=== PATIENT | female | born 2005 | race Caucasian/White ===

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

== ENCOUNTER 2023-04-28 17:00 | Inpatient (IN) | payer OTHER, MEDICAID, SELFPAY ==
[2023-04-28 17:08] VITALS: BP 151/101; PULSE 140; RESP 18; TEMP 36.7; O2SAT 99; BMI 36.6
--- NOTE | 2023-04-28 17:08 | ED.GENADULT ---
HPI - General Adult General Chief complaint: Psychiatric Symptoms Stated complaint: Crisis Time Seen by Provider: 04/28/23 18:47 Source: patient and family Mode of arrival: ambulatory History of Present Illness HPI narrative: Worsening depression and anxiety, outpatient crisis sent her in because she is not caring for herself. Not suicidal Onset (ago): week(s) Severity: severe Related Data Home Medications Medication Instructions Recorded Confirmed atomoxetine 40 mg capsule 40 mg PO QAM 04/28/23 04/28/23 cariprazine 3 mg capsule (Vraylar) 3 mg PO DAILY 04/28/23 04/28/23 clonidine HCl 0.1 mg tablet 0.1 mg PO BID 04/28/23 04/28/23 fluoxetine 40 mg capsule 40 mg PO DAILY 04/28/23 04/28/23 norethindrone 1 mg-ethinyl 1 tab PO DAILY 04/28/23 04/28/23 estradiol 35 mcg tablet (Nortrel) Allergies Allergy/AdvReac Type Severity Reaction Status Date / Time No Known Allergies Allergy Verified 03/02/22 20:03 [No Known Allergies*] Review of Systems Review of Systems: Yes all other systems are reviewed and are negative Neurologic: Denies Sensory deficit (Neuro) [facility] Social History Social History Alcohol intake: never Advance Directives: No Advance Directives Information Provided: No Physical Exam ED Vital Signs: Vital Signs - 24 hr 04/28/23 17:08 04/29/23 00:17 Temperature 98.1 F 98.0 F Pulse Rate 140 H 117 H Respiratory Rate 18 18 Blood Pressure 151/101 H 125/88 Pulse Oximetry 99 99 Oxygen Delivery Method Room Air Room Air BMI result Body Mass Index 36.6 Const Other: simple affect General: healthy appearing Nutritional Appearance: average body habitus Orientation/consciousness: oriented to person and patient oriented x3 Limitations: no limitations HENMT Head: Yes normal to inspection Ears: external ears normal General nose exam: Normal external nose present Mouth: Normal oral and palatal mucosa present and oropharynx normal Throat: Yes posterior oropharynx normal Eyes General: appearance normal, both eyes and all related structures Neck Neck: Yes normal visual inspection Chest Chest palpation & inspection: normal inspection of the chest Resp Auscultation: clear to auscultation bilaterally Cardio Jugular venous distension: no JVD Rate: regular rate Rhythm: regular rhythm Heart sounds: S1 normal heart sound present and S2 normal heart sound present GI Inspection: Yes normal to inspection Palpation (GI): Soft to palpation, nontender and No hepatosplenomegaly present Auscultation: normal bowel sounds General: Yes no CVA tenderness Back/Spine/Pelvis Back: no CVA tenderness Skin General skin exam: no rashes or lesions noted Neuro General: oriented to person and patient oriented x3 Cranial nerves: Yes CN's II-XII intact bilaterally Motor exam (neuro): 5/5 motor strength present throughout Sensory Exam: No Sensory deficit (Neuro) Extrem General: Yes normal to inspection Psych Appearance: grossly normal Course Course Course Narrative: This is an RME: Additional HPI, ROS, PE not included below will be deferred to primary provider. 17 y o female PMH depression presenting for evaluation of depressive symptoms, states its been really bad lately . Denying SI/HI. States she is medication compliant on multiple medications including Atomoxetine, Clonidine, Vraylar, Fluoxetine. Denies chest pain, shortness of breath, dizziness, abdominal pain, numbness or tingling, nausea and vomiting. Plan: Labs Reevaluation(s) Reevaluation #1: physician observation: started at 8pm, reason is that we need to see if her depression improves or she will need to be admitted. Time: 19:59 Reevaluation #2: patient is medically cleared Time: 19:59 Reevaluation #3: Physician observation continued The patient has been in the emergency department for 14 hours, there are no reported incidents that occurred overnight. The patient has been seen by in and is a voluntary in-patient bed search. The patient will be kept in the emergency department Behavioral Health Unit until disposition can be determined or until her symptoms improve over time. Time: 07:07 Medications Administered Discontinued Medications Generic Name Dose Route Start Last Admin Trade Name [place] PRN Reason Stop Dose Admin Clonidine HCl 0.1 mg 04/29/23 01:26 04/29/23 01:28 Clonidine Hcl 0.1 Mg Tablet PO 04/29/23 01:27 0.1 mg ONCE ONE Administration Protocol Ibuprofen 600 mg 04/28/23 22:00 04/28/23 22:05 Ibuprofen 600 Mg Tablet PO 04/28/23 22:01 600 mg ONCE ONE Administration Ondansetron HCl 4 mg 04/28/23 22:00 04/28/23 22:06 Ondansetron Odt 4 Mg Tab.Rapdis TRANSLINGU 04/28/23 22:01 4 mg ONCE ONE Administration Medical Decision Making Differential Diagnosis Differential Diagnoses: The differential diagnosis associated with the presentation includes (depression, bipolar, suicidal ideation, PTSD) Admission/Observation Consideration of admission/observation: Escalation of care including admission/observation considered (upon arrival patient was considered for admission) Consult Healthcare Provider Management of the patient was discussed with: Behavioral Health Provider Lab Data 04/28/23 17:30 04/28/23 17:30 Labs: Lab Results 04/28/23 04/28/23 04/29/23 Range/Units 17:30 20: 01:04 WBC 9.3 (4.8-10.8) X10*3/uL RBC 5.17 (4.20-5.50) X10*6/uL Hgb 12.7 (12.0-16.0) g/dl Hct 39.8 (37.0-47.0) % MCV 77.0 L (80.0-98.0) fL MCH 24.6 L (27.0-33.0) pg MCHC 31.9 (31.0-35.0) g/dl RDW 17.8 H (11.0-16.0) % Plt Count 368 (160-400) X10*3/uL MPV 9.5 (9.4-12.3) fL Immature Gran % (Auto) 0.3 (0.0-0.4) % Neut % (Auto) 57.4 (45-73) % Lymph % (Auto) 31.3 (20-40) % [place] % (Auto) 8.6 (2-11) % Eos % (Auto) 2.0 (0-4) % Baso % (Auto) 0.4 (0-2) % Lymph # (Auto) 2.9 (1.2-4.9) X10*3/uL [place] # (Auto) 0.8 (0.1-1.2) X10*3/uL Eos # (Auto) 0.2 (0.0-0.4) X10*3/uL Baso # (Auto) 0.0 (0.0-0.2) X10*3/uL Abs Immat Gran (auto) 0.03 (0.00-0.03) X10*3/uL Absolute Neuts (auto) 5.4 (2.0-8.3) x10*3/uL Absolute Nucleated RBC 0.000 (0.0-0.012) X10*3/uL Nucleated RBC % (auto) 0.0 (0.0-0.2) /100WBC Sodium 135 (135-145) mmol/L Potassium 3.9 (3.3-5.1) mmol/L Chloride 107 (96-108) mmol/L Carbon Dioxide 17 L (22-29) mmol/L Anion Gap 15 (12-20) BUN 7 L (9-16) mg/dL Creatinine 0.71 (0.5-1.4) mg/dL Estim Creat Clear Calc 133.5 Estimated GFR > 60 Random Glucose 125 H (60-115) mg/dL Calcium 9.4 (8.4-10.2) mg/dL Total Bilirubin 0.3 (0.0-1.0) mg/dL AST 47 H (5-31) U/L ALT 74 H (0-31) U/L Alkaline Phosphatase 112 (39-117) U/L Total Protein 8.0 (6.5-8.0) g/dL Albumin 4.0 (3.5-5.0) g/dL Urine Color Dark Yellow Urine Appearance Cloudy Urine pH 6.0 (5.0-9.0) Ur Specific [place] >= 1.030 H (1.005-1.025) Urine Protein Trace (Neg-Trace) mg/dL Urine Glucose (UA) Negative (Negative) mg/dL Urine Ketones Trace (Negative) mg/dL Urine Blood Negative (Negative) Urine Nitrite Negative (Negative) Ur Leukocyte Esterase Moderate (2+) H (Negative) Urine RBC 11-20 H (0-2) /HPF Urine WBC >50 H (0-5) /HPF Ur Squamous Epith Cells >20 (0-2) /HPF Calcium Oxalate Crystal Present Urine Bacteria 4+ (None Seen) Hyaline Casts >20 (0-2) /LPF Salicylates < 5.0 L (15-30) mg/dL Urine Opiates Screen Not Detected (Not Detect) Urine Fentanyl Screen Not Detected (Not Detect) Acetaminophen < 17 (<30) mcg/mL Ur Barbiturates Screen Not Detected (Not Detect) Ur Phencyclidine Scrn Not Detected (Not Detect) Ur Amphetamines Screen Not Detected (Not Detect) U Benzodiazepines Scrn Not Detected (Not Detect) Urine Cocaine Screen Not Detected (Not Detect) U Marijuana (THC) Screen Not Detected (Not Detect) Ethyl Alcohol < 10 mg/dL Independent Interpretation I performed an independent interpretation of an: EKG (sinus tachycardia rate [address] or twave changes) Independent Historian Clinical information obtained from an independent historian. History obtained from or confirmed by: Parent and Other (grandmother) Chronic Conditions Patient?s care impacted by: Other (psychiatric) Discharge Plan Discharge Clinical Impression: Depression, Suicidal ideation Patient Disposition: Still a Patient Prescriptions: No Action fluoxetine 40 mg capsule 40 mg PO DAILY clonidine HCl 0.1 mg tablet 0.1 mg PO BID Nortrel 1/35 (28) 1-35 mg-mcg tablet 1 tab PO DAILY atomoxetine 40 mg capsule 40 mg PO QAM Vraylar 3 mg capsule 3 mg PO DAILY Interventions: [place]-Suicide Risk Severity Scale Last Done: 04/29/23 01:11
--- NOTE | 2023-04-28 17:11 | ECG_ITS ---
Test Reason : tachy Blood Pressure : / mmHG Vent. Rate : 143 BPM Atrial Rate : 143 BPM P-R Int : 096 ms QRS Dur : 090 ms QT Int : 364 ms P-R-T Axes : 000 080 010 degrees QTc Int : 561 ms Sinus tachycardia with short PA ST & T wave abnormality, consider anterior ischemia Abnormal ECG No previous ECGs available Referred By: Generic ED Physician Electronically Signed By:CHRISTIANA KIMBALL
[2023-04-28 17:35] LABS: MANUAL DIFF FLAG NO
[2023-04-28 17:37] LABS: Basophils Percent Auto 0.4 % (0-2); Eosinophils Absolute Auto 0.2 X10*3/uL (0.0-0.4); Hematocrit 39.8 % (37.0-47.0); Hemoglobin 12.7 g/dl (12.0-16.0); Imm Gran Abs Auto 0.03 X10*3/uL (0.00-0.03); Imm Gran Pct Auto 0.3 % (0.0-0.4); Lymphocytes Absolute Auto 2.9 X10*3/uL (1.2-4.9); Lymphocytes Percent Auto 31.3 % (20-40); Mean Corpuscular HGB Conc 31.9 g/dl (31.0-35.0); Mean Corpuscular Hemoglobin 24.6 pg (27.0-33.0); Mean Platelet Volume 9.5 fL (9.4-12.3); Monocytes Absolute Auto 0.8 X10*3/uL (0.1-1.2); Monocytes Percent Auto 8.6 % (2-11); Neutrophils Absolute Auto 5.4 x10*3/uL (2.0-8.3); Neutrophils Percent Auto 57.4 % (45-73); Platelet Count 368 X10*3/uL (160-400); Red Blood Count 5.17 X10*6/uL (4.20-5.50); Red Cell Distribution Width 17.8 % (11.0-16.0); White Blood Count 9.3 X10*3/uL (4.8-10.8)
[2023-04-28 17:59] LABS: Alanine Aminotransferase 74 U/L (0-31); Alkaline Phosphatase 112 U/L (39-117); Anion Gap 15 (12-20); Aspartate Amino Transferase 47 U/L (5-31); Bilirubin Total 0.3 mg/dL (0.0-1.0); Blood Urea Nitrogen 7 mg/dL (9-16); Calcium 9.4 mg/dL (8.4-10.2); Carbon Dioxide 17 mmol/L (22-29); Chloride 107 mmol/L (96-108); Creatinine Clr Calc Pharmacy 133.5; Estimated Glomerular Filt Rate > 60; Ethanol < 10 mg/dL; Glucose Random 125 mg/dL (60-115); Potassium 3.9 mmol/L (3.3-5.1); Sodium 135 mmol/L (135-145)
--- NOTE | 2023-04-28 20:04 | MHC.CARE ---
Pt was assessed by JAMMIE in the community and brought to the ED by her parents to await inpatient psych placement.
[2023-04-28 20:58] LABS: Acetaminophen LAB < 17 mcg/mL (<30); Salicylate < 5.0 mg/dL (15-30)
[2023-04-28] MEDS: Ibuprofen 600 MG TABLET PO (22:05)
[2023-04-28] MEDS: Ondansetron ODT 4 MG TAB.RAPDIS TRANSLINGU (22:06)
--- NOTE | 2023-04-29 00:07 | PC.NURSE ---
pt status reviewed with Dr. Sierra. hr 108 pt has anxiety at baseline and is medically cleared for the pod per Dr. Sierra.
[2023-04-29 00:17] VITALS: BP 125/88; PULSE 117; RESP 18; TEMP 36.7; O2SAT 99
--- NOTE | 2023-04-29 00:48 | PC.NURSE ---
Patient was transferred from main ED to ED POD by CC, patient is in ED for 7 + hours no belonging list completed, patient is not appropriately changed, incomplete labs, safety check not initiated, no report provided, patient belongings got dumped at nurses station, belonging secured in the locker ED RN was asked to Ed to complete the belonging list, ambulated independently, patient disposition per [facility] is section 12 Inpatient bed search, per request patient provided urine sample, VSS, changeover completed, safety check initiated, patient is currently in bed resting quietly, will continue to monitor.
[2023-04-29 01:15] LABS: Appearance Urine Cloudy; Color Urine Dark Yellow; Glucose Urine UA Negative (Negative); Leukocyte Esterase Urine Moderate (2+) (Negative); Nitrite Urine Negative (Negative); Specific Gravity - Urine >= 1.030 (1.005-1.025); UMIC TRIGGER UACC YES; Urine Blood Negative (Negative); Urine Ketones Trace mg/dL (Negative); Urine Protein Trace mg/dL (Neg-Trace)
[2023-04-29] MEDS: cloNIDine HCL 0.1 MG TABLET PO ×3 (01:28→20:27)
[2023-04-29 01:29] LABS: Amphetamine Screen Urine Not Detected (Not Detect); Barbiturates, Urine Not Detected (Not Detect); Benzodiazepines Screen Urine Not Detected (Not Detect); Cannabinoid Screen Urine Not Detected (Not Detect); Cocaine Screen Urine Not Detected (Not Detect); Fentanyl, urine Not Detected (Not Detect); Opiate Screen Urine Not Detected (Not Detect); Phencyclidine Screen Urine Not Detected (Not Detect)
--- NOTE | 2023-04-29 01:30 | PC.NURSE ---
Patient reported increased anxiety, mother reported patient takes Clonidine 0.1 mg/ provider notified/administered clonidine 0.1 mg as ordered at 0128 pending effect, patient was reassured she will be safe here, will continue to monitor.
[2023-04-29 01:31] LABS: Bacteria Urine 4+ (None Seen); Calcium Oxalate Crystals Urine Present; Hyaline Casts Urine >20 /LPF (0-2); Squamous Epithelial Cell Urine >20 /HPF (0-2); UACC Culture Trigger YES; WBC Urine >50 /HPF (0-5)
--- NOTE | 2023-04-29 07:19 | PC.NURSE ---
patient appears to remain asleep at present respirations are even and unlabored patient appears in no distress
--- NOTE | 2023-04-29 07:20 | PC.NURSE ---
patient arose for the day just recently, resubmitted her stuffed animal toy to this commercial underwriter, asked to call parent which t/w helped her to do, patient continues as calm.
[2023-04-29 08:19] VITALS: BP 147/86; PULSE 98; RESP 18; TEMP 37.3; O2SAT 98
[2023-04-29] MEDS: FLUoxetine HCl 20 MG CAPSULE 40 MG PO (08:34)
[2023-04-29] MEDS: Cariprazine HCl 3 MG CAPSULE PO (08:34)
[2023-04-29 10:22] LABS: COVID-19 Test Negative (Negative); IDNOW Serial# 55D5AD1C
[2023-04-29 19:28] VITALS: BP 148/89; PULSE 106; RESP 20; TEMP 36.6; O2SAT 100
--- NOTE | 2023-04-30 00:17 | PC.ADMIT ---
Denice is 1 17yo female presenting [place] [facility] after being assessed by N secondary to reports of threatening behaviors and inability to care. Her mother, Chely, reports that Denice has not been attending to her ADLs in 7+ weeks. Denice denies SI/HI. She initially refused voluntary IPLOC treatment but ultimately agreed to go IPLOC for stabilization. She seems to make SI statements and HI statements towards her family at baseline. Clinician notes that her depressive symptoms have increased due to recent significant losses. She was previously diagnosed with Asperger's syndrome as well as ADHD. Regulating her emotions may be very challenging for her. Clinician also notes that she is refusing to engage with providers and lacks healthy coping skills.?
--- NOTE | 2023-04-30 00:18 | PC.ADMIT ---
Denice is 17yo female who presented to [facility] after being assessed by N secondary to reports of threatening behaviors and inability to care for herself. She was admitted to [facility]. Her mother, Chely, reports that Denice has not been attending to her ADLs in 7+ weeks. Denice denies SI/HI. . She seems to make SI statements and HI statements towards her family at baseline. Patient states that her depressive symptoms have increased due to recent significant losses, she stated that she lost her father an uncle and a very close family friend as well as two pets in the past year. Mother reported that Denice was previously diagnosed with Asperger's syndrome as well as ADHD. She was cooperative with the admission process. She chose to sleep in room 505 as she needed a bright light on in order to sleep and her assigned room has a roomate.
[2023-04-30 06:00] VITALS: BP 126/70; PULSE 108; RESP 16; TEMP 35.8; O2SAT 98
[2023-04-30] MEDS: cloNIDine HCL 0.1 MG TABLET PO ×2 (08:33→20:46)
[2023-04-30] MEDS: FLUoxetine HCl 20 MG CAPSULE 40 MG PO (08:33)
[2023-04-30] MEDS: Cariprazine HCl 3 MG CAPSULE PO (08:33)
[2023-04-30 12:11] LABS: Estimated Average Glucose 103 mg/dL; Hemoglobin A1c % 5.2 % (<6.0)
[2023-04-30 12:15] LABS: Alanine Aminotransferase 61 U/L (0-31); Albumin Level 3.8 g/dL (3.5-5.0); Alkaline Phosphatase 103 U/L (39-117); Anion Gap 15 (12-20); Aspartate Amino Transferase 30 U/L (5-31); Bilirubin Total 0.4 mg/dL (0.0-1.0); Blood Urea Nitrogen 9 mg/dL (9-16); Calcium 9.7 mg/dL (8.4-10.2); Carbon Dioxide 21 mmol/L (22-29); Chloride 106 mmol/L (96-108); Cholesterol 197 mg/dL (<200); Creatinine Clr Calc Pharmacy 121.5; Estimated Glomerular Filt Rate > 60; Glucose Fasting 109 mg/dL (60-99); HDL Cholesterol 39 mg/dL (>40); LDL Cholesterol Calculated 124 mg/dL (<100); Sodium 138 mmol/L (135-145); Total Protein 7.2 g/dL (6.5-8.0); Triglycerides 170 mg/dL (<150)
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
[2023-04-30 16:41] VITALS: BP 123/58; PULSE 90; RESP 16; TEMP 36.1; O2SAT 98
[2023-05-01 06:00] VITALS: BP 114/53; PULSE 94; RESP 18; TEMP 36.1; O2SAT 97
[2023-05-01] MEDS: Cariprazine HCl 3 MG CAPSULE PO (08:34)
[2023-05-01] MEDS: cloNIDine HCL 0.1 MG TABLET PO ×2 (08:34→19:51)
[2023-05-01] MEDS: FLUoxetine HCl 20 MG CAPSULE 40 MG PO (08:35)
--- NOTE | 2023-05-01 10:28 | HO.PSYCHPN ---
Subjective Subjective Date of Service: 05/01/23 Reason For Visit: Suicidal Ideation Interim History: met with patient; discussed with team; reviewed notes Patient agrees that she has been depressed this past year and lists the number of people that have , as well as to pets and how this has been very difficult for her. She endorses multiple neurovegetative symptoms of depression. She says that when she is upset she will say things like herself however she does not really mean it and has no history of harming herself at all. Patient agrees to increasing Prozac. She says she really would like to go home. She says if not today, tomorrow? accepts need to gather collateral first and agrees for team to talk w/ mother. Mental Status Exam Mental Status Exam Narrative: Pt is alert and oriented; behavior is cooperative, friendly and calm; patient is not in distress; dressed in casual attire, well groomed, carrying a stuffed animal/blanket; mood is described as depressed and affect a little blunted; eye contact appropriate; Speech is normal rate, volume and prosody and not pressured; no psychomotor agitation/retardation present; thought process is organized and goal directed; Thought content is on discharge; otherwise pertinent to relevant topics and without any delusional content, paranoid ideations or grandiosity; denies any SI/HI. There is no evidence of perceptual disturbance. Patients insight and judgment appear intact. Diagnostics Vital Signs (24Hr): Vital Signs - 24 hr 04/30/23 16:41 05/01/23 06:00 Temperature 97.0 F 97.0 F Pulse Rate 90 94 Respiratory Rate 16 18 Blood Pressure 123/58 L 114/53 L Pulse Oximetry 98 97 Oxygen Delivery Method Room Air Room Air BMI result Body Mass Index 36.6 Labs 04/28/23 17:30 04/30/23 11:06 Labs: Laboratory Results - last 48 hr 04/30/23 11:06 Sodium 138 Potassium 4.0 Chloride 106 Carbon Dioxide 21 L Anion Gap 15 BUN 9 Creatinine 0.78 Estim Creat Clear Calc 121.5 Estimated GFR > 60 Fasting Glucose 109 H Estimat Average Glucose 103 Hemoglobin A1c % 5.2 Calcium 9.7 Total Bilirubin 0.4 AST 30 ALT 61 H Alkaline Phosphatase 103 Total Protein 7.2 Albumin 3.8 Triglycerides 170 H Cholesterol 197 LDL Cholesterol, Calc 124 H HDL Cholesterol 39 L Medications Medications Current Medications Acetaminophen (Acetaminophen 325 Mg Tablet) 650 mg PO Q6H PRN PRN Reason: Headache/Pain Mild Scale (1-3) Al Hydroxide/Mg Hydroxide (Magnesium Hydrox/Alum Hydrox 30 Ml Oral.Susp) 30 ml PO Q6H PRN PRN Reason: Heartburn/Nausea Cariprazine (Cariprazine Hcl 3 Mg Capsule) 3 mg PO DAILY [facility] Last Admin: 05/01/23 08:34 Dose: 3 mg Clonidine HCl (Clonidine Hcl 0.1 Mg Tablet) 0.1 mg PO BID [facility]; Protocol Last Admin: 05/01/23 08:34 Dose: 0.1 mg Fluoxetine HCl (Fluoxetine Hcl 20 Mg Capsule) 40 mg PO DAILY [facility] Last Admin: 05/01/23 08:35 Dose: 40 mg Hydroxyzine HCl (Hydroxyzine Hcl 25 Mg Tablet) 25 mg PO Q6H PRN PRN Reason: Anxiety Magnesium Hydroxide (Milk Of Magnesia 30 Ml Oral.Susp) 30 ml PO DAILY PRN PRN Reason: Constipation Pt Own(Norethindrone -Ethin Estradiol [ Nortrel ()] 1 -35 Mg-Mcg Ta 1 tab PO DAILY [facility] Last Admin: 05/01/23 09:25 Dose: 1 tab Trazodone HCl (Trazodone Hcl 50 Mg Tablet) 50 mg PO BEDTIME MRX1 PRN PRN Reason: Insomnia Allergies Allergies Allergy/AdvReac Type Severity Reaction Status Date / Time No Known Allergies Allergy Verified 03/02/22 20:03 [No Known Allergies*] Assessment & Plan Assessment & Plan (1) Major depression: Status: Acute Code(s): F32.9 - Major depressive disorder, single episode, unspecified (2) Autism spectrum: Status: Acute Code(s): F84.0 - Autistic disorder (3) Adopted: Status: Acute Code(s): Z02.82 - Encounter for adoption services Plan 17 year old adopted female with a history of ASD, anxiety, LD's, presents with symptoms of major depression in the context of multiple losses. Hospital course: 05/01 Patient agrees that she has been depressed this past year and lists the number of people that have , as well as to pets and how this has been very difficult for her. She endorses multiple neurovegetative symptoms of depression. She says that when she is upset she will say things like herself however she does not really mean it and has no history of harming herself at all. Patient agrees to increasing Prozac. She says she really would like to go home. -will get collateral from mother. Plan: Admit to [facility] 15 minute checks Increase Prozac to 60 mg Disposition planning Patient educated on: diagnosis, medication risk/benefits and therapeutic strategies Informed Consent: understands Reason for continued inpatient stay Substantial Risk for: med/psych decompensation Time Spent With Patient Time: Total time managing care of this patient today ____ minutes.
[2023-05-01] MEDS: FLUoxetine HCl 20 MG CAPSULE PO (13:58)
[2023-05-01 18:00] VITALS: BP 132/72; PULSE 98; TEMP 36; O2SAT 98
[2023-05-02 08:24] VITALS: BP 105/60; PULSE 91; RESP 16; TEMP 36.5; O2SAT 99
[2023-05-02] MEDS: cloNIDine HCL 0.1 MG TABLET PO ×2 (08:38→19:27)
[2023-05-02] MEDS: FLUoxetine HCl 20 MG CAPSULE 60 MG PO (08:38)
[2023-05-02] MEDS: Cariprazine HCl 3 MG CAPSULE PO (08:38)
--- NOTE | 2023-05-02 09:36 | P.PNPSI_ITS ---
Subjective Subjective Date of Service: 05/02/23 Reason For Visit: Suicidal Ideation Interim History: met with patient; discussed with team pt reports she wants to go home; she reports she still depressed, but safe, no SI and wants to go home. Pt acknowledges that she was not bathing that much at home, but adds she's been showering since on the unit (which staff corroborates); she does not like brushing her teeth because of the taste of tooth paste and notes she has 11 cavities. She just does not want to...however, she will consider it if using bubblegum toothpaste.... Mother called and talked with Sw and said that they (family) know patient does not really mean it when she makes threats about self or to others; mother is mostly concerned that patient has not been attending to ADL's Mental Status Exam Mental Status Exam Narrative: Pt is alert and oriented; behavior is cooperative and calm; patient is not in distress; dressed in casual attire, well groomed, carrying a stuffed animal/blanket; mood is described as depressed and affect a little blunted; eye contact appropriate; Speech is normal rate, volume and prosody and not pressured; no psychomotor agitation/retardation present; thought process is organized and goal directed; Thought content is on discharge; otherwise pertinent to relevant topics and without any delusional content, paranoid ideations or grandiosity; denies any SI/HI. There is no evidence of perceptual disturbance. Patients insight and judgment are impaired but adequate. Diagnostics Vital Signs (24Hr): Vital Signs - 24 hr 05/01/23 18:00 05/02/23 08:24 Temperature 96.8 F 97.7 F Pulse Rate 98 91 Respiratory Rate 16 Blood Pressure 132/72 105/60 Pulse Oximetry 98 99 Oxygen Delivery Method Room Air Room Air BMI result Body Mass Index 36.6 Labs 04/28/23 17:30 04/30/23 11:06 Labs: Laboratory Results - last 48 hr 04/30/23 11:06 Sodium 138 Potassium 4.0 Chloride 106 Carbon Dioxide 21 L Anion Gap 15 BUN 9 Creatinine 0.78 Estim Creat Clear Calc 121.5 Estimated GFR > 60 Fasting Glucose 109 H Estimat Average Glucose 103 Hemoglobin A1c % 5.2 Calcium 9.7 Total Bilirubin 0.4 AST 30 ALT 61 H Alkaline Phosphatase 103 Total Protein 7.2 Albumin 3.8 Triglycerides 170 H Cholesterol 197 LDL Cholesterol, Calc 124 H HDL Cholesterol 39 L Medications Medications Current Medications Acetaminophen (Acetaminophen 325 Mg Tablet) 650 mg PO Q6H PRN PRN Reason: Headache/Pain Mild Scale (1-3) Al Hydroxide/Mg Hydroxide (Magnesium Hydrox/Alum Hydrox 30 Ml Oral.Susp) 30 ml PO Q6H PRN PRN Reason: Heartburn/Nausea Cariprazine (Cariprazine Hcl 3 Mg Capsule) 3 mg PO DAILY [facility] Last Admin: 05/02/23 08:38 Dose: 3 mg Clonidine HCl (Clonidine Hcl 0.1 Mg Tablet) 0.1 mg PO BID [facility]; Protocol Last Admin: 05/02/23 08:38 Dose: 0.1 mg Fluoxetine HCl (Fluoxetine Hcl 20 Mg Capsule) 60 mg PO DAILY [facility] Last Admin: 05/02/23 08:38 Dose: 60 mg Hydroxyzine HCl (Hydroxyzine Hcl 25 Mg Tablet) 25 mg PO Q6H PRN PRN Reason: Anxiety Magnesium Hydroxide (Milk Of Magnesia 30 Ml Oral.Susp) 30 ml PO DAILY PRN PRN Reason: Constipation Pt Own(Norethindrone -Ethin Estradiol [ Nortrel 35 (28)] 1 -35 Mg-Mcg Ta 1 tab PO DAILY [facility] Last Admin: 05/02/23 08:38 Dose: 1 tab Trazodone HCl (Trazodone Hcl 50 Mg Tablet) 50 mg PO BEDTIME MRX1 PRN PRN Reason: Insomnia Allergies Allergies Allergy/AdvReac Type Severity Reaction Status Date / Time No Known Allergies Allergy Verified 03/02/22 20:03 [No Known Allergies*] Assessment & Plan Assessment & Plan (1) Major depression: Status: Acute Code(s): F32.9 - Major depressive disorder, single episode, unspecified (2) Autism spectrum: Status: Acute Code(s): F84.0 - Autistic disorder (3) Adopted: Status: Acute Code(s): Z02.82 - Encounter for adoption services Plan 17 year old adopted female with a history of ASD, anxiety, LD's, presents with symptoms of major depression in the context of multiple losses. Hospital course: 05/01 Patient agrees that she has been depressed this past year and lists the number of people that have , as well as to pets and how this has been very difficult for her. She endorses multiple neurovegetative symptoms of depression. She says that when she is upset she will say things like herself however she does not really mean it and has no history of harming herself at all. Patient agrees to increasing Prozac. She says she really would like to go home. 05/02 no change in presentation; tolerating increased Prozac. Room to go up on Vraylar....but this is something outpt provider can do. Pt remains focused on discharge home. Not in imminent risk of harm to self or others; Plan: 3 day notice q15 min checks Increase Prozac to 60 mg Disposition planning Patient educated on: diagnosis and medication risk/benefits Reason for continued inpatient stay Substantial Risk for: stable for discharge Time Spent With Patient Time: Total time managing care of this patient today ____ minutes.
--- NOTE | 2023-05-02 15:22 | PC.NURSE ---
Week three of pt's own supply of Nortrel control was noted to have pills removed for Monday and Monday. Pt informed leader writer that she was supposed to be on week four of her control pack and stated I am supposed to get my period today. I am supposed to have a white pill. Pt reported she would only take a white pill and was adamant that she was on week four of her pack. Per pt's request, leader writer spoke with pt's mother Chely. Chely stated that she administers the pt's medications for her at home, including the control pills. Chely stated that the pt began the pack on 04/09/2023, and that the pt should be on week four of the placebo white pills. Chely visited with the pt and viewed the control pack. Initially Chely stated this is not her pack. Chely stated that when she brought the medication to the hospital, there was one remaining active pill for week three (Monday's dose) and a full fourth week of placebo pills. Pharmacy was notified of issue and confirmed that the control pack verified by pharmacy belonged to patient. After discussion with hospital pharmacy and pt's pharmacy, decision was made by pt and her mother Chely for pt to only receive week four pills (white placebo). Pt received a white placebo pill today from week four of pack. Per pharmacy (and with pt and pt's mother's consent), remaining active yellow pills in week three and fourth week of white placebo pills for Monday and Monday were wasted. Remaining control pills include four white placebo pills in the fourth week for Monday through Monday. Chely stated that pt only takes control to regulate periods and that pt will start a new pack this Monday.
--- NOTE | 2023-05-02 16:08 | P.PNPSI_ITS ---
Subjective Subjective Date of Service: 05/02/23 Reason For Visit: Suicidal Ideation Interim History: met with patient; discussed with team; family meeting Plate Slitter And Inspector met with patient, her mother and grandmother. Patient reports that she remains depressed and all agree that she has suffered a lot of losses this past year. Discussed her resistance to ADLs and increasing intolerance of frustration. Patient's mother also noted that her medication has been changed. Her Vraylar was increased about 4 weeks ago; and she had been off Prozac for while and was restarted about 4 weeks ago as well. She also noted that this past spring, patient was taken off dexmethylphenidate, a stimulant medication she had been on for years, all through high school which keno writer / runner agrees could definitely be contributory towards depression and impulse control. Patient denies any SI or HI. She was to go home but agrees to remain on the unit to be with her pact team tomorrow. Discussed diagnosis including ASD. Also discussed former diagnosis of a bipolar disorder and from the history obtained, keno writer / runner cannot conclude that patient has ever had an actual manic episode Also discussed therapy in the community, options Mental Status Exam Mental Status Exam Narrative: Pt is alert and oriented; behavior is cooperative and calm; patient is not in distress; dressed in casual attire, well groomed, carrying a stuffed animal/blanket; mood is described as depressed and affect a little blunted; eye contact appropriate; Speech is normal rate, volume and prosody and not pressured; no psychomotor agitation/retardation present; thought process is organized and goal directed; Thought content is on discharge; otherwise pertinent to relevant topics and without any delusional content, paranoid ideations or grandiosity; denies any SI/HI. There is no evidence of perceptual disturbance. Patients insight and judgment are impaired but adequate. Diagnostics Vital Signs (24Hr): Vital Signs - 24 hr 05/01/23 18:00 05/02/23 08:24 Temperature 96.8 F 97.7 F Pulse Rate 98 91 Respiratory Rate 16 Blood Pressure 132/72 105/60 Pulse Oximetry 98 99 Oxygen Delivery Method Room Air Room Air BMI result Body Mass Index 36.6 Labs 04/28/23 17:30 04/30/23 11:06 Medications Medications Current Medications Acetaminophen (Acetaminophen 325 Mg Tablet) 650 mg PO Q6H PRN PRN Reason: Headache/Pain Mild Scale (1-3) Al Hydroxide/Mg Hydroxide (Magnesium Hydrox/Alum Hydrox 30 Ml Oral.Susp) 30 ml PO Q6H PRN PRN Reason: Heartburn/Nausea Cariprazine (Cariprazine Hcl 3 Mg Capsule) 3 mg PO DAILY COUNT INCLUDES THE [facility] Last Admin: 05/02/23 08:38 Dose: 3 mg Clonidine HCl (Clonidine Hcl 0.1 Mg Tablet) 0.1 mg PO BID COUNT INCLUDES THE [facility]; Protocol Last Admin: 05/02/23 08:38 Dose: 0.1 mg Fluoxetine HCl (Fluoxetine Hcl 20 Mg Capsule) 60 mg PO DAILY COUNT INCLUDES THE [facility] Last Admin: 05/02/23 08:38 Dose: 60 mg Hydroxyzine HCl (Hydroxyzine Hcl 25 Mg Tablet) 25 mg PO Q6H PRN PRN Reason: Anxiety Magnesium Hydroxide (Milk Of Magnesia 30 Ml Oral.Susp) 30 ml PO DAILY PRN PRN Reason: Constipation Pt Own(Norethindrone -Ethin Estradiol [ Nortrel 35 (28)] 1 -35 Mg-Mcg Ta 1 tab PO DAILY COUNT INCLUDES THE [facility] Last Admin: 05/02/23 08:38 Dose: 1 tab Trazodone HCl (Trazodone Hcl 50 Mg Tablet) 50 mg PO BEDTIME MRX1 PRN PRN Reason: Insomnia Allergies Allergies Allergy/AdvReac Type Severity Reaction Status Date / Time No Known Allergies Allergy Verified 03/02/22 20:03 [No Known Allergies*] Assessment & Plan Assessment & Plan (1) Major depression: Status: Acute Code(s): F32.9 - Major depressive disorder, single episode, unspecified (2) Autism spectrum: Status: Acute Code(s): F84.0 - Autistic disorder (3) Adopted: Status: Acute Code(s): Z02.82 - Encounter for adoption services Plan 17 year old adopted female with a history of ASD, anxiety, LD's, presents with symptoms of major depression in the context of multiple losses. Hospital course: 05/01 Patient agrees that she has been depressed this past year and lists the number of people that have , as well as to pets and how this has been very difficult for her. She endorses multiple neurovegetative symptoms of depression. She says that when she is upset she will say things like herself however she does not really mean it and has no history of harming herself at all. Patient agrees to increasing Prozac. She says she really would like to go home. 05/02 no change in presentation; tolerating increased Prozac. Room to go up on Vraylar....but this is something outpt provider can do. Pt remains focused on discharge home. Not in imminent risk of harm to self or others; Plate Slitter And Inspector met with patient, her mother and grandmother. Patient reports that she remains depressed and all agree that she has suffered a lot of losses this past year. Discussed her resistance to ADLs and increasing intolerance of frustration. Patient's mother also noted that her medication has been changed. Her Vraylar was increased about 4 weeks ago; and she had been off Prozac for while and was restarted about 4 weeks ago as well. She also noted that this past spring, patient was taken off dexmethylphenidate, a stimulant medication she had been on for years, all through high school which keno writer / runner agrees could definitely be contributory towards depression and impulse control. Mother said that this was a covering provider who did not know patient very well at all. Patient denies any SI or HI. She was to go home but agrees to remain on the unit to be with her pact team tomorrow. Plan: CV q15 min checks Increase Prozac to 60 mg Will very likely restart dexmethylphenidate Disposition planning Reason for continued inpatient stay Substantial Risk for: stable for discharge and med/psych decompensation Time Spent With Patient Time: Total time managing care of this patient today ____ minutes.
[2023-05-02 19:24] VITALS: BP 128/77; PULSE 92; TEMP 36.3
[2023-05-03 08:40] VITALS: BP 130/81; PULSE 96; RESP 16; TEMP 36.4; O2SAT 97
[2023-05-03] MEDS: FLUoxetine HCl 20 MG CAPSULE 60 MG PO (08:49)
[2023-05-03] MEDS: Cariprazine HCl 3 MG CAPSULE PO (08:49)
[2023-05-03] MEDS: cloNIDine HCL 0.1 MG TABLET PO ×2 (08:49→20:03)
--- NOTE | 2023-05-03 16:16 | P.PNPSI_ITS ---
Subjective Subjective Date of Service: 05/03/23 Reason For Visit: Suicidal Ideation Interim History: Met with patient; discussed with team Patient much brighter today, and reports she is in a better mood and that depression is less. Patient was even casually joking with database report writer, asking if she can bribed database report writer with a deck of cards to letter discharge early. Mental Status Exam Mental Status Exam Narrative: Pt is alert and oriented; behavior is cooperative, friendly and calm; patient is not in distress; dressed in casual attire, well groomed, carrying a stuffed animal/blanket; mood is described as good and affect noticeably brighter; eye contact appropriate; Speech is normal rate, volume and prosody and not pressured; no psychomotor agitation/retardation present; thought process is organized and goal directed; Thought content is on discharge; otherwise pertinent to relevant topics and without any delusional content, paranoid ideations or grandiosity; denies any SI/HI. There is no evidence of perceptual disturbance. Patients insight and judgment are impaired but at baseline and adequate. Diagnostics Vital Signs (24Hr): Vital Signs - 24 hr 05/02/23 19:24 05/03/23 08:40 Temperature 97.4 F 97.5 F Pulse Rate 92 96 Respiratory Rate 16 Blood Pressure 128/77 130/81 Pulse Oximetry 97 Oxygen Delivery Method Room Air CPAP BMI result Body Mass Index 36.6 Labs 04/28/23 17:30 04/30/23 11:06 Medications Medications Current Medications Acetaminophen (Acetaminophen 325 Mg Tablet) 650 mg PO Q6H PRN PRN Reason: Headache/Pain Mild Scale (1-3) Al Hydroxide/Mg Hydroxide (Magnesium Hydrox/Alum Hydrox 30 Ml Oral.Susp) 30 ml PO Q6H PRN PRN Reason: Heartburn/Nausea Cariprazine (Cariprazine Hcl 3 Mg Capsule) 3 mg PO DAILY [facility] Last Admin: 05/03/23 08:49 Dose: 3 mg Clonidine HCl (Clonidine Hcl 0.1 Mg Tablet) 0.1 mg PO BID [facility]; Protocol Last Admin: 05/03/23 08:49 Dose: 0.1 mg Fluoxetine HCl (Fluoxetine Hcl 20 Mg Capsule) 60 mg PO DAILY [facility] Last Admin: 05/03/23 08:49 Dose: 60 mg Hydroxyzine HCl (Hydroxyzine Hcl 25 Mg Tablet) 25 mg PO Q6H PRN PRN Reason: Anxiety Magnesium Hydroxide (Milk Of Magnesia 30 Ml Oral.Susp) 30 ml PO DAILY PRN PRN Reason: Constipation Pt Own(Norethindrone -Ethin Estradiol [ Nortrel (28)] 1 -35 Mg-Mcg Ta 1 tab PO DAILY [facility] Last Admin: 05/03/23 08:49 Dose: 1 tab Trazodone HCl (Trazodone Hcl 50 Mg Tablet) 50 mg PO BEDTIME MRX1 PRN PRN Reason: Insomnia Allergies Allergies Allergy/AdvReac Type Severity Reaction Status Date / Time No Known Allergies Allergy Verified 03/02/22 20:03 [No Known Allergies*] Assessment & Plan Assessment & Plan (1) Major depression: Status: Acute Code(s): F32.9 - Major depressive disorder, single episode, unspecified (2) Autism spectrum: Status: Acute Code(s): F84.0 - Autistic disorder (3) Adopted: Status: Acute Code(s): Z02.82 - Encounter for adoption services Plan 17 year old adopted female with a history of ASD, anxiety, LD's, presents with symptoms of major depression in the context of multiple losses. Hospital course: 05/01 Patient agrees that she has been depressed this past year and lists the number of people that have , as well as to pets and how this has been very difficult for her. She endorses multiple neurovegetative symptoms of depression. She says that when she is upset she will say things like herself however she does not really mean it and has no history of harming herself at all. Patient agrees to increasing Prozac. She says she really would like to go home. 05/02 no change in presentation; tolerating increased Prozac. Room to go up on Vraylar....but this is something outpt provider can do. Pt remains focused on discharge home. Not in imminent risk of harm to self or others; Date Night Caregiver met with patient, her mother and grandmother. Patient reports that she remains depressed and all agree that she has suffered a lot of losses this past year. Discussed her resistance to ADLs and increasing intolerance of frustration. Patient's mother also noted that her medication has been changed. Her Vraylar was increased about 4 weeks ago; and she had been off Prozac for while and was restarted about 4 weeks ago as well. She also noted that this past spring, patient was taken off dexmethylphenidate, a stimulant medication she had been on for years, all through high school which database report writer agrees could definitely be contributory towards depression and impulse control. Mother said that this was a covering provider who did not know patient very well at all. Patient denies any SI or HI. She was to go home but agrees to remain on the unit to be with her pact team tomorrow. 05/03 patient says her mood is better and depression lasts and is with noticeably brighter affect. She is looking for to discharge tomorrow. She is returning to her supportive family. Patient is not in imminent risk for harm to self or others and request for discharge honored Plan: CV q15 min checks Increase Prozac to 60 mg Will very likely restart dexmethylphenidate Disposition planning Patient educated on: diagnosis Informed Consent: understands Reason for continued inpatient stay Substantial Risk for: stable for discharge Time Spent With Patient Time: Total time managing care of this patient today ____ minutes.
[2023-05-03] MEDS: hydrOXYzine HCL 25 MG TABLET PO (18:59)
[2023-05-03 20:01] VITALS: BP 121/77; PULSE 97; RESP 18; TEMP 37
[2023-05-04 08:00] VITALS: BP 132/70; PULSE 86; RESP 16; TEMP 36.3; O2SAT 97
[2023-05-04] MEDS: Cariprazine HCl 3 MG CAPSULE PO (08:38)
[2023-05-04] MEDS: FLUoxetine HCl 20 MG CAPSULE 60 MG PO (08:38)
[2023-05-04] MEDS: cloNIDine HCL 0.1 MG TABLET PO (08:38)
--- NOTE | 2023-05-04 09:05 | P.DS_ITS ---
DS: Providers Provider Date of Service: 05/04/23 Date of admission: 04/29/23 20:44 Date of discharge: 05/04/23 Primary care physician: Shanel Raymundo DNP Attending physician on admission: Solo Nelson Attending physician on discharge: Vazquez Callaway DS: Diagnosis Discharge Diagnosis (1) Major depression: Status: Acute (2) Autism spectrum: Status: Acute (3) PTSD (post-traumatic stress disorder): Status: Acute DS: Medications Discharge Medications Home Medications: Home Medications Medication Instructions Recorded Confirmed norethindrone 1 mg-ethinyl 1 tab PO DAILY 04/28/23 04/28/23 estradiol 35 mcg tablet (Nortrel) Previous Rx's Medication Instructions Recorded cariprazine 3 mg capsule (Vraylar) 3 mg PO DAILY 30 days #30 caps 05/04/23 clonidine HCl 0.1 mg tablet 0.1 mg PO BID 30 days #60 tabs 05/04/23 dexmethylphenidate 30 mg 30 mg PO DAILY 30 days #30 caps 05/04/23 capsule,extended release [id number] fluoxetine 20 mg capsule 60 mg (3 x 20 mg) PO DAILY 30 days 05/04/23 #90 caps Mental Status Exam Mental Status Exam Narrative: Pt is alert and oriented; behavior is cooperative, friendly and calm; patient is not in distress; dressed in casual attire, well groomed; mood is described as good and affect noticeably brighter; eye contact appropriate; Speech is normal rate, volume and prosody and not pressured; no psychomotor agitation/retardation present; thought process is organized and goal directed; Thought content is on discharge; otherwise pertinent to relevant topics and without any delusional content, paranoid ideations or grandiosity; denies any SI/HI. There is no evidence of perceptual disturbance. Patients insight and judgment are impaired but at baseline and adequate. Data Data Completed and Pending Completed studies during hospitalization [Text1]: 04/28/23 04/28/23 04/29/23 17:30 20:23 01:04 WBC 9.3 RBC 5.17 Hgb 12.7 Hct 39.8 MCV 77.0 L MCH 24.6 L MCHC 31.9 RDW 17.8 H Plt Count 368 MPV 9.5 Immature Gran % (Auto) 0.3 Neut % (Auto) 57.4 Lymph % (Auto) 31.3 [place] % (Auto) 8.6 Eos % (Auto) 2.0 Baso % (Auto) 0.4 Lymph # (Auto) 2.9 [place] # (Auto) 0.8 Eos # (Auto) 0.2 Baso # (Auto) 0.0 Abs Immat Gran (auto) 0.03 Absolute Neuts (auto) 5.4 Absolute Nucleated RBC 0.000 Nucleated RBC % (auto) 0.0 Sodium 135 Potassium 3.9 Chloride 107 Carbon Dioxide 17 L Anion Gap 15 BUN 7 L Creatinine 0.71 Estim Creat Clear Calc 133.5 Estimated GFR > 60 Random Glucose 125 H Fasting Glucose Estimat Average Glucose Hemoglobin A1c % Calcium 9.4 Total Bilirubin 0.3 AST 47 H ALT 74 H Alkaline Phosphatase 112 Total Protein 8.0 Albumin 4.0 Triglycerides Cholesterol LDL Cholesterol, Calc HDL Cholesterol Urine Color Dark Yellow Urine Appearance Cloudy Urine pH 6.0 Ur Specific [place] >= 1.030 H Urine Protein Trace Urine Glucose (UA) Negative Urine Ketones Trace Urine Blood Negative Urine Nitrite Negative Ur Leukocyte Esterase Moderate (2+) H Urine RBC 11-20 H Urine WBC >50 H Ur Squamous Epith Cells >20 Calcium Oxalate Crystal Present Urine Bacteria 4+ Hyaline Casts >20 Salicylates < 5.0 L Urine Opiates Screen Not Detected Urine Fentanyl Screen Not Detected Acetaminophen < 17 Ur Barbiturates Screen Not Detected Ur Phencyclidine Scrn Not Detected Ur Amphetamines Screen Not Detected U Benzodiazepines Scrn Not Detected Urine Cocaine Screen Not Detected U Marijuana (THC) Screen Not Detected Ethyl Alcohol < 10 COVID-19 (TYRELL) COVID-19 Clin Com 04/29/23 04/30/23 09:47 11:06 WBC RBC Hgb Hct MCV MCH MCHC RDW Plt Count MPV Immature Gran % (Auto) Neut % (Auto) Lymph % (Auto) [place] % (Auto) Eos % (Auto) Baso % (Auto) Lymph # (Auto) [place] # (Auto) Eos # (Auto) Baso # (Auto) Abs Immat Gran (auto) Absolute Neuts (auto) Absolute Nucleated RBC Nucleated RBC % (auto) Sodium 138 Potassium 4.0 Chloride 106 Carbon Dioxide 21 L Anion Gap 15 BUN 9 Creatinine 0.78 Estim Creat Clear Calc 121.5 Estimated GFR > 60 Random Glucose Fasting Glucose 109 H Estimat Average Glucose 103 Hemoglobin A1c % 5.2 Calcium 9.7 Total Bilirubin 0.4 AST 30 ALT 61 H Alkaline Phosphatase 103 Total Protein 7.2 Albumin 3.8 Triglycerides 170 H Cholesterol 197 LDL Cholesterol, Calc 124 H HDL Cholesterol 39 L Urine Color Urine Appearance Urine pH Ur Specific [place] Urine Protein Urine Glucose (UA) Urine Ketones Urine Blood Urine Nitrite Ur Leukocyte Esterase Urine RBC Urine WBC Ur Squamous Epith Cells Calcium Oxalate Crystal Urine Bacteria Hyaline Casts Salicylates Urine Opiates Screen Urine Fentanyl Screen Acetaminophen Ur Barbiturates Screen Ur Phencyclidine Scrn Ur Amphetamines Screen U Benzodiazepines Scrn Urine Cocaine Screen U Marijuana (THC) Screen Ethyl Alcohol COVID-19 (TYRELL) Negative COVID-19 Clin Com See Note 04/29/23 Unknown Urine clean catch - Clean Catch Midstream Urine Culture - Final DS: Summary Hospital Course Hospital Course: 17 year old adopted female with a history of ASD, anxiety, LD's, presents with symptoms of major depression in the context of multiple losses. Hospital course: On admission, patient depressed. Mostly keeping to herself, caring around stuffed animal. Patient agrees that she has been depressed this past year and lists the number of people that have , as well as to pets and how this has been very difficult for her. She endorses multiple neurovegetative symptoms of depression. She says that when she is upset she will say things about hurting herself however she does not really mean it and has no history of harming herself at all. Patient agrees to increasing Prozac. She says she really would like to go home. Increased Prozac. Remote Medical Coder had family meeting with mother and grandmother during which time patient got a chance to process some of her grief. Patient tolerating increased Prozac. Patient's mother agreed that they have no actual concerns that patient is going to hurt herself or someone else and understand that when she gets dysregulated, she says all kinds of things but never follows through; she agrees with patient that she does not really mean it. Mother also noted that her medication has been changed over past months. Her Vraylar was increased about 4 weeks ago; and she had been off Prozac for while and was just restarted about 4 weeks ago as well. She also noted that this past spring, patient was taken off dexmethylphenidate, a stimulant medication she had been on for years, all through high school which engineering technical writer agrees could definitely be contributory towards depression and impulse control. Mother said that this was a covering provider who did not know patient very well at all. Patient's mother felt that it would likely be helpful to have this restarted to which engineering technical writer agreed (mother said there had been some talk of bipolar depression however engineering technical writer reviewed history and no history at all of manic episodes or behaviors; though very unlikely a risk regarding restarting stimulant stimulant, engineering technical writer discussed risks including triggering manic episode, though again patient is not meet criteria for bipolar disorder; mother is aware, will monitor and stop medication, call provider if patient has adverse reaction). After family meeting patient felt in a better mood. She wanted to go home but agreed to remain on the unit to be with her Pact team tomorrow. Following day patient reported that her mood was significantly better and she had an obviously brighter affect. She felt that her depression was resolving and excited to go home soon. Throughout her time on the unit, patient was appropriate with peers and staff and remained in good behavioral and impulse control; she remained without any SI and responded to treatment. Team agreed for patient to discharge tomorrow. She is returning to her supportive family. Patient is not in imminent risk for harm to self or others and request for discharge honored Time spent discussing smoking cessation with patient: 3 to 10 minutes Status at Discharge Functional status at discharge: independent ambulation Overall status at discharge: patient is progressing back to baseline Time Spent with Patient Time attestation: Total time managing care of this patient today ____ minutes. 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 Your team will schedule all follow up appointments ) Shanel Raymundo DNP [Primary Care Provider] - 1 Week Discharge Medications: New dexmethylphenidate 30 mg capsule,ER biphasic 50-50 30 mg PO DAILY 30 Days Qty: 30 0RF Rx Instructions: Partial Fill upon patient request. Continued Nortrel () 1-35 mg-mcg tablet 1 tab PO DAILY clonidine HCl 0.1 mg tablet 0.1 mg PO BID 30 Days Qty: 60 1RF Vraylar 3 mg capsule 3 mg PO DAILY 30 Days Qty: 30 1RF Changed fluoxetine 20 mg capsule 60 mg PO DAILY 30 Days Qty: 90 1RF Discontinued atomoxetine 40 mg capsule 40 mg PO QAM Discharge Orders: Discharge Order (Routine); Ordered 05/04/23 Ordered By: Vazquez Callaway Diet: Regular diet Activity on Discharge: As tolerated Stand Alone Forms: Patient Portal Discharge page Care Plan Goals: Maintain mood and safe behaviors Take medications as prescribed Practice coping skills Continue with outpatient providers and reach out to them as needed Health Concerns: Mood stability and behaviors Plan of Treatment: Follow up with your PCP, psychiatric provider and other outpatient providers regarding above concerns Take medications as prescribed Assessment: Risk assessment at time of discharge:? Patient was interviewed prior to discharge and found to be fully oriented and without any SI or HI. Patient has insight and demonstrates good judgment in terms of wanting to pursue treatment. Patient is not in imminent risk of harm to self or others and has a safety plan that includes presenting to the closest ER or calling 911 if feeling unsafe.? Patient has been observed closely by nursing and unit staff throughout admission; patient has not engaged in any behaviors that suggest dangerousness to self or others and has demonstrated appropriate behaviors and impulse control
== END 2023-05-04 11:42 | disposition home or self-care (01) | DRG 751 ==
LOC: HO.ED 04-29 07:06 → HO.PM5 04-29 20:51
PROVIDERS: Emergency Medicine; Physician Assistant; Admitting Provider Psychiatry & Neurology Psychiatry; Emergency Provider Emergency Medicine Emergency Medical Services; PCP Registered Nurse; Visit Provider Psychiatry & Neurology Psychiatry
DX: F33.2 Major depressive disorder, recurrent severe without psychotic features (principal); R45.851 Suicidal ideations; F43.10 Post-traumatic stress disorder, unspecified; F84.0 Autistic disorder; F90.9 Attention-deficit hyperactivity disorder, unspecified type; Z23 Encounter for immunization; Z62.812 Personal history of neglect in childhood; Z20.822 Contact with and (suspected) exposure to COVID-19; Z79.899 Other long term (current) drug therapy
CPT/HCPCS: 36415; 80053; 80061; 80143; 80179; 80307; 81001; 83036; 85025; 87086; 87635; 90686; 93005; 99285

== ENCOUNTER → 2023-04-29 20:44 | Outpatient (BNV) | payer OTHER, SELFPAY | PROVIDERS: Admitting Provider Psychiatry & Neurology Psychiatry; Emergency Provider Emergency Medicine Emergency Medical Services; PCP Registered Nurse; Visit Provider Psychiatry & Neurology Psychiatry | DX: F33.2 Major depressive disorder, recurrent severe without psychotic features (principal); F84.0 Autistic disorder; F43.11 Post-traumatic stress disorder, acute | CPT/HCPCS: 90792; 99231; 99232; 99238; 99499 ==

== ENCOUNTER 2023-09-23 21:59 | Emergency (ER) | payer OTHER, MEDICAID, SELFPAY ==
--- NOTE | ~2023-09-23 | XR_ITS ---
EXAMINATION: XR HIP, RIGHT CLINICAL INFORMATION: Pain. COMPARISON: None available. TECHNIQUE: Frontal view of pelvis. Two views of the right hip. FINDINGS: No fracture. Alignment is anatomic. Hip joint space is maintained. Soft tissues are unremarkable. XR/XR hip RT w PEL1V IMPRESSION: Normal right hip.
[2023-09-23 22:07] VITALS: BP 162/95; PULSE 90; RESP 16; TEMP 36.4; O2SAT 97; BMI 33.6
--- OUTSIDE RECORDS SUMMARY | 2023-09-23 22:37 | XMS_ITS | Patient Health Record ---
Author Name Unknown Organization [facility] Address [address] [place] [id number] Care Team Providers Care Repairer Helper Name Role Phone RICKI ROBLES Primary Care Provider [phone] ALLERGIES No Known Allergies RESULTS Component Value Reference Range Notes T3 REVERSE, LC/MS/MS (27905) Reviewed date:02/14/2023 06:13:43 AM Interpretation: Performing Lab:[facility] [id number] Stoney Albarado, [id number] Randy Sierra M.D.,PhD Notes/Report: FASTING:YES FASTING: YES T3 REVERSE, LC/MS/MS 11 8-25 ng/dL This test was developed and its analytical performance characteristics have been determined by [facility] [place], [place]. It has not been cleared or approved by the U.S. Food and Drug Administration. This assay has been validated pursuant to the CLIA regulations and is used for clinical purposes. VITAMIN D,25-OH,TOTAL,IA (17 306) Reviewed date:02/09/2023 08:14:42 AM Interpretation: Performing Lab:NL2, [facility] [address] [place], [place] [id number] Ginger Brown Notes/Report: FASTING:YES FASTING: YES VITAMIN D,25-OH,TOTAL,IA 15 30-100 ng/mL Vitamin D Status 25-OH Vitamin D: Deficiency: <20 ng/mL Insufficiency: 20 - 29 ng/mL Optimal: > or = 30 ng/mL For 25-OH Vitamin D testing on patients on D2-supplementation and patients for whom quantitation of D2 and D3 fractions is required, the QuestAssureD(TM) 25-OH VIT D, (D2,D3), LC/MS/MS is recommended: order code 71972 (patients >2yrs). See Note 1 Note 1 For additional information, please refer to http://education.Revolights/faq/QGL311 (This link is being provided for informational/ educational purposes only.) INSULIN (561) Reviewed date:02/09/2023 08:14:42 AM Interpretation: Performing Lab:NL2, [facility] [address] [place], [place] [id number] Ginger Brown Notes/Report: FASTING:YES FASTING: YES INSULIN 42.2 Reference Range < or = 18.4 Risk: Optimal < or = 18.4 Moderate NA High >18.4 Adult cardiovascular event risk category cut points (optimal, moderate, high) are based on Insulin Reference Interval studies performed at [facility] in 2021. APOLIPOPROTEIN B (5224) Reviewed date:02/11/2023 12:22:35 PM Interpretation: Performing Lab:[facility]/Sarah [id number] Stoney Albarado, [id number] Randy Sierra M.D.,PhD Notes/Report: FASTING:YES FASTING: YES APOLIPOPROTEIN B 115 <90 mg/dL Reference Range: <90 Risk Category: Optimal < 90 Moderate 90 - 119 High > or = 120 Cardiovascular event risk category cut points (optimal, moderate, high) are based on National Lipid Association recommendations-Shelton TA et al. J Clin Lipid. 2015;9:129-169 and Xochilt PS et al. Endocr Pract. 2017;23(Suppl 2):1-87. APOLIPOPROTEIN A1 (5223) Reviewed date:02/11/2023 12:22:35 PM Interpretation: Performing Lab:[facility]/Sarah Mary [id number] Stoney Albarado, [id number] Randy Sierra M.D.,PhD Notes/Report: FASTING:YES FASTING: YES APOLIPOPROTEIN A1 193 >=125 mg/dL Reference Range: > or = 125 Risk Category: Female Optimal > or = 125 High < 125 Cardiovascular event risk category cut points (optimal, high) are based on the AMORIS study, Lily Denson et al. J [employer]cher Med. 2004;255:188-205. HEMOGLOBIN A1c (496) Reviewed date:02/09/2023 01:19:37 PM Interpretation: Performing Lab:[email or web address], [facility] Ginger Brown Notes/Report: FASTING:YES FASTING: YES HEMOGLOBIN A1c 5.7 <5.7 % of total Hgb For someone without known diabetes, a hemoglobin A1c value between 5.7% and 6.4% is consistent with prediabetes and should be confirmed with a follow-up test. For someone with known diabetes, a value <7% indicates that their diabetes is well controlled. A1c targets should be individualized based on duration of diabetes, age, comorbid conditions, and other considerations. This assay result is consistent with an increased risk of diabetes. Currently, no consensus exists regarding use of hemoglobin A1c for diagnosis of diabetes for children. HS CRP (64941) Reviewed date:02/09/2023 01:19:37 PM Interpretation: Performing Lab:[email or web address], [facility] Melyssa Rancho Brown Notes/Report: FASTING:YES FASTING: YES HS CRP >10.0 Reference Range Optimal <1.0 Jellwilmer PS et al. Endocr Pract.2017;23(Suppl 2):1-87. For ages >17 Years: hs-CRP mg/L Risk According to AHA/CDC Guidelines <1.0 Lower relative cardiovascular risk. 1.0-3.0 Average relative cardiovascular risk. 3.1-10.0 Higher relative cardiovascular risk. Consider retesting in 1 to 2 weeks to exclude a benign transient elevation in the baseline CRP value secondary to infection or inflammation. >10.0 Persistent elevation, upon retesting, may be associated with infection and inflammation. CBC (H/H, RBC, INDICES, WBC, PLT) (1759) Reviewed date:02/09/2023 08:14:42 AM Interpretation: Performing Lab:NL2, [facility] Ginger Brown Notes/Report: FASTING:YES FASTING: YES WHITE BLOOD CELL COUNT 9.5 3.8-10.8 Thousand/ uL RED BLOOD CELL COUNT 4.75 3.80-5.10 Million/uL HEMOGLOBIN 11.3 11.7-15.5 g/dL HEMATOCRIT 35.9 35.0-45.0 % MCV 75.6 80.0-100.0 fL MCH 23.8 27.0-33.0 pg MCHC 31.5 32.0-36.0 g/dL RDW 16.5 11.0-15.0 % PLATELET COUNT 466 140-400 Thousand/uL MPV 9.0 7.5-12.5 fL URIC ACID (905) Reviewed date:02/09/2023 08:14:42 AM Interpretation: Performing Lab:NL2, [facility] Wsq[address]mz[address] Ginger Brown Notes/Report: FASTING:YES FASTING: YES URIC ACID 2.9 2.5-7.0 mg/dL Therapeutic ta rget for gout patients: <6.0 mg/dL COMPREHENSIVE METABOLIC PANE L (37861) Reviewed date:02/09/2023 08:14:42 AM Interpretation: Performing Lab:NL2, [facility] Ordktpcd[address] Ginger Brown Notes/Report: FASTING:YES FASTING: YES GLUCOSE 99 65-99 mg/dL Fasting reference interval UREA NITROGEN (BUN) 7 7-20 mg/dL CREATININE 0.65 0.50-0.96 mg/dL EGFR 130 > OR = 60 mL/min/1.73m2 The eGFR is based on the CKD-EPI 2020 equation. To calculate the new eGFR from a previous Creatinine or Cystatin C result, go to https://www.kidney.org/pr ofessionals/ kdoqi/gfr%5Fcalculator BUN/CREATININE RATIO NOT APPLICABLE 6-22 (calc) SODIUM 136 135-146 mmol/L POTASSIUM 4.1 3.8-5.1 mmol/L CHLORIDE 103 98-110 mmol/L CARBON DIOXIDE 23 20-32 mmol/L CALCIUM 9.1 8.9-10.4 mg/dL PROTEIN, TOTAL 7.1 6.3-8.2 g/dL ALBUMIN 3.9 3.6-5.1 g/dL GLOBULIN 3.2 2.0-3.8 g/dL (calc) ALBUMIN/GLOBULIN RATIO 1.2 1.0-2.5 (calc) BILIRUBIN, TOTAL 0.3 0.2-1.1 mg/dL ALKALINE PHOSPHATASE 105 36-128 U/L AST 13 12-32 U/L ALT 16 5-32 U/L LIPID PANEL WITH REFLEX TO D IRECT LDL (50638) Reviewed date:02/09/2023 08:07:04 AM Interpretation: Performing Lab:NL2, [facility] Ginger Brown Notes/Report: FASTING:YES FASTING: YES CHOLESTEROL, TOTAL 249 <170 mg/dL HDL CHOLESTEROL 72 >45 mg/dL TRIGLYCERIDES 155 <90 mg/dL LDL-CHOLESTEROL 148 <110 mg/dL (calc) LDL-C is now calculated using the Liliana calculation, which is a validated novel method providing better accuracy than the Friedewald equation in the estimation of LDL-C. Carlos RESENDIZ et al. ABHISHEK. 2013;310(19): 7640-3943 (http://education.UTOPY/faq/WYI610) CHOL/HDLC RATIO 3.5 <5.0 (calc) NON HDL CHOLESTEROL 177 <120 mg/dL (calc) For patients with diabetes plus 1 major ASCVD risk factor, treating to a non-HDL-C goal of <100 mg/dL (LDL-C of <70 mg/dL) is considered a therapeutic option. ALBUMIN, RANDOM URINE W/CREA NORMAN (6517) Reviewed date:02/10/2023 10:26:24 AM Interpretation: Performing Lab:2, [facility] Ginger Brown Notes/Report: FASTING:YES FASTING: YES CREATININE, RANDOM URINE 181 20-275 mg/dL ALBUMIN, URINE 1.5 See Note: mg/dL Reference Range: Reference Range Not established ALBUMIN/CREATININE RATIO, RANDOM URINE 8 <30 mcg/mg creat The ADA defines abnormalities in albumin excretion as follows: Albuminuria Category Result (mcg/mg creatinine) Normal to Mildly increased <30 Moderately increased 30-299 Severely increased > OR = 300 The ADA recommends that at least two of three specimens collected within a 3-6 month period be abnormal before considering a patient to be within a diagnostic category. IRON, TIBC AND FERRITIN PANE L (5616) Reviewed date:02/09/2023 08:07:04 AM Interpretation: Performing Lab:NL2, [facility] B[address]klqc[address] Ginger Brown Notes/Report: FASTING:YES FASTING: YES IRON, TOTAL 19 27-164 mcg/dL IRON BINDING CAPACITY 595 271-448 mc g/dL (calc) % SATURATION 3 15-45 % (calc) FERRITIN 3 16-154 ng/mL METHYLMALONIC ACID AND HOMOC YSTEINE (29331) Reviewed date:02/14/2023 03:20:12 PM Interpretation: Performing Lab:[facility],[address] [address] [facility] HealthcareCA[address] Victoria Cassidy MD,PhD,CHARI Notes/Report: FASTING:YES FASTING: YES METHYLMALONIC ACID 124 87-318 nmol/L This test was developed and its analytical performance characteristics have been determined by [facility]. It has not been cleared or approved by FDA. This assay has been validated pursuant to the CLIA regulations and is used for clinical purposes. HOMOCYSTEINE 5.9 <10.4 umol/L Homocysteine is increased by functional deficiency of folate or vitamin B12. Testing for methylmalonic acid differentiates between these deficiencies. Other causes of increased homocysteine include renal failure, folate antagonists such as methotrexate and phenytoin, and exposure to nitrous oxide. Corey J, et al. Hillary [employer]cher Med. 1999;131(5):331-9. THYROID PANEL WITH TSH (7444 ) Reviewed date:02/09/2023 08:07:04 AM Interpretation: Performing Lab:NL2, [facility] Pinlqqpc[address] Ginger Brown Notes/Report: FASTING:YES FASTING: YES T3 UPTAKE 21 22-35 % T4 (THYROXINE), TOTAL 8.1 5.3-11.7 mcg/dL FREE T4 INDEX (T7) 1.7 1.4-3.8 TSH 4.30 Reference Range 1-19 Years 0.50-4.30 Ranges First trimester 0.26-2.66 Second trimester 0.55-2.73 Third trimester 0.43-2.91 THYROID PEROXIDASE AND THYRO GLOBULIN ANTIBODIES (7260) Reviewed date:02/09/2023 01:19:37 PM Interpretation: Performing Lab:NL2, [facility] [address] [facility] Ginger Torresjohn Notes/Report: FASTING:YES FASTING: YES THYROGLOBULIN ANTIBODIES <1 < or = 1 IU/mL THYROID PEROXIDASE ANTIBODIES 249 <9 IU/mL REASON FOR REFERRAL No Information MEDICATIONS Medication SIG (Take, Route, Frequency, Duration) Notes Start Date End Date Status ARIPiprazole 10 MG 1 tablet Orally Once a day for 30 day(s) 02/03/2023 Not-Taking Venlafaxine HCl ER 75 MG 1 capsule with food Orally Once a day Active ARIPiprazole 5 MG 1 tablet Orally Once a day for 30 day(s) 02/03/2023 Not-Taking Atomoxetine HCl 40 MG 1 capsule in the morning Orally Once a day Not-Taking Focalin XR 30 MG 1 capsule in the morning Orally Once a day Active ARIPiprazole 2 MG 1 tablet Orally Once a day for 30 day(s) 02/03/2023 Not-Taking Nortrel 1/35 (28) 1-35 MG-MCG as directed Orally Active FLUoxetine HCl 60 MG 1 capsule Orally On ce a day Not-Taking Vraylar 3 MG 1 capsule Orally Onc e a day for 30 days 02/03/2023 Active Triamcinolone Acetonide 0.5 % 1 application External Twice a day for 7 days 05/09/2023 Active Propranolol HCl 10 mg TAKE 1 TABLET BY M OUTH TWICE A DAY NEEDED for 28 Active Nortrel 1/35 (28) 1-35 MG-MCG one tab daily Orally once a day for 84 days 07/07/2023 Active cloNIDine HCl 0.1 MG 1 tablet Orally Twi ce a day Not-Taking SOCIAL HISTORY Tobacco Use: Social History Observation Description Date Details (start date - stop date) Never Smoker NA - NA Sex Assigned At : Social History Observation Description Sex Assigned At Unknown Tobacco Use/Smoking Question Answer Notes Tobacco use: nonsmoker PROBLEMS Problem Type ICD Code Onset Dates Problem Status W/U Status Risk SNOMED Code Notes Problem Failure to thrive (child) (R62.51) Active confirmed Failure to thrive (78350458) Problem Anxiety (F41.9) Active confirmed Anxiety (70938238) VITAL SIGNS Heart Rate 87 /min 07/10/2023 Height-cm 157.48 cm 09/11/2023 Oximetry 98 % 07/10/2023 Blood pressure diastolic 82 mm Hg 07/10/2023 Weight-kg 80.2 kg 07/10/2023 BMI Percentile 95.62 % 07/10/2023 Height 62 in 09/11/2023 Blood pressure systolic 122 mm Hg 07/10/2023 Weight 176.8 lbs 07/10/2023 BMI 32.33 kg/m2 07/10/2023 Encounters Encounter Location Date Provider Diagnosis [address] [id number] 03/20/[address] [id number] 02/03/2023 RICKI ROBLES Encounter for other general examination Z00.8 ; Other fatigue R53.83 ; Encounter for screening for cardiovascular disorders Z13.6 ; Encounter for screening for diabetes mellitus Z13.1 ; Encounter for screening for diseases of the blood and blood-forming organs and certain disorders involving the immune mechanism Z13.0 ; Encounter for screening for disorder due to exposure to contaminants Z13.88 ; Encounter for screening for endocrine disorder Z13.29 ; Encounter for screening for lipoid disorders Z13.220 ; Encounter for screening for nutritional disorder Z13.21 ; Encounter for screening for osteoporosis Z13.820 and Encounter for screening for other suspected endocrine disorder Z13.[address] [id number] 02/23/2023 RICKI ROBLES Rash and nonspecific skin eruption R21 ; Insulin resistance E88.81 and Encounter to discuss test results Z71.[address] [id number] 05/09/2023 RICKI ROBLES Anxiety F41.9 and Tachycardia, unspecified R00.[address] [id number] 07/10/2023 RICKI ROBLES Anxiety F41.9 and Insulin resistance E88.[address] [id number] 09/11/2023 RICKI ROBLES Anxiety F41.9 and Failure to thrive (child) R62.51 [facility] [address], [place] [id number] 03/21/2023 RICKI ROBLES [facility] [address] [place], [place] [id number] 02/20/2023 RICKI ROBLES Rash and nonspecific skin eruption R21 [facility] [address] [place], [place] [id number] 02/24/2023 RICKI ROBLES [facility] [address] [place], [place] [id number] 05/11/2023 RICKI ROBLES Anxiety F41.9 [facility] [address], [place] [id number] 07/06/2023 RICKI ROBLES [address] [id number] 09/07/2023 RICKI ROBLES ASSESSMENTS Encounter Date Diagnosis Assessment Notes Treatment Notes Treatment Clinical Notes 02/03/2023 Encounter for other general examination (ICD-10 - Z00.8) New patient welcomed to [facility] and complete intake was obtained. Patient handbook reviewed and signed receipt. Time spent with patient >70 minutes which included medication reconciliation, review of office policies and procedures, review of medical and family history, and discussion/exam with provider. 02/23/2023 Rash and nonspecific skin eruption (ICD-10 - R21) Likely staph, will send mupirocin BID for 5-7 days, f/u at CPE or if no improvement 05/09/2023 Tachycardia, unspecified (ICD-10 - R00.0) Cardiac Arrhythmia: Care Instructions material was published 05/09/2023 Anxiety (ICD-10 - F41.9) Physical activity, a healthy diet, regular sleep, and relaxation exercises may all help reduce anxiety. Joining a support group may also help. To manage symptoms effectively, its best to avoid caffeine, alcohol, and nicotine. See a doctor immediately if you: are thinking about suicide and or can't complete activities of daily living. 05/11/2023 Anxiety (ICD-10 - F41.9) 07/10/2023 Anxiety (ICD-10 - F41.9) Condition is stable and well controlled on current treatment. No changes made, medication(s) refilled as indicated 07/10/2023 Insulin resistance (ICD-10 - E88.81) Insulin resistance is when cells in your muscle, fat, and liver don't respond well to insulin and can't use glucose from your body from energy. To make up for it, your pancreas makes more insulin. For a while this will work and your blood sugar level will stay normal. Over time, though, your pancreas won't be able to keep up. If you don't make changes in the way you eat and exercise, your blood sugar level will rise until you have prediabetes. Insulin resistance syndrome includes a group of problems like obesity, high blood pressure, high cholesterol, and type 2 diabetes. Treatment and prevention: Exercise- go for at least 30 minutes a day of moderate activity 5 or more days a week Get to a healthy weight- Eat a healthy diet- fruits, vegetables, whole grains, nuts, beans, fish, legumes, and other lean proteins (will consider pancake professional if this is not successful given age) Know risks if metabolic syndrome (insulin resistance) does untreated. 09/11/2023 Failure to thrive (child) (ICD-10 - R62.51) Denice is not doing well, mom is very concerned. They will see her psychiatrist this monday. She is not noticing a difference on venlafaxine either. At this point, consideration to class of medications as it seems she has not had improvement on SSRI/SNRI. She is not bathing, not getting dressed other than her pajamas which she wears daily or under clothes if they do have to go out. She has not washed her hair in 6 weeks. She is not eating, although today she had salmon burgers (2), but yesterday she walked around with a container of frosting and ate only that periodically. She is very connected to services and community support but none have been helpful. Mom will keep us up to date on the decisions that are made this Monday. 09/11/2023 Anxiety (ICD-10 - F41.9) 02/20/2023 Rash and nonspecific skin eruption (ICD-10 - R21) 02/23/2023 Insulin resistance (ICD-10 - E88.81) There is insulin resistance as evidenced by fasting insulin of >10. Glucose and A1C can still be normal but it was explained to the patient that if we do not correct this now, it will continue to increase to pre-diabetes and eventually type 2 diabetes. Explained the pathophysiology of insulin resistance and the development of prediabetes and type 2 diabetes. We discussed using IF/TRF as a way to reverse this making our cells more sensitive to insulin. Will follow them closely and repeat labs in 3 months for objective data to measure her progress. 02/23/2023 Encounter to discuss test results (ICD-10 - Z71.2) All labs were reviewed and the results were explained to the patient in detail. Total time with patient >30 minutes which includes education and coordination of care. All labs were reviewed and the results were explained to the patient in detail. Total time with patient >30 minutes which includes education and coordination of care. 02/03/2023 Other fatigue (ICD-10 - R53.83) We performed bipolar screening today and she checked nearly every box, clearly indicating bipolar depression, suspect bipolar 2 which would make sense since her mother suffered from bipolar depression and her brother also has mood disorder and some psychosis. We will taper down off abilify as discussed, we will eventually stop the fluoxetine and she will start Vraylar. We discussed either Vraylar or Caplyta as both are approved for bipolar depression. We will obtain labs since she has not had them done. She has gained a significant amount of weight and there is concern for metabolic syndrome. 02/03/2023 Encounter for screening for cardiovascular disorders (ICD-10 - Z13.6) 02/03/2023 Encounter for screening for diabetes mellitus (ICD-10 - Z13.1) 02/03/2023 Encounter for screening for diseases of the blood and blood-forming organs and certain disorders involving the immune mechanism (ICD-10 - Z13.0) 02/03/2023 Encounter for screening for disorder due to exposure to contaminants (ICD-10 - Z13.88) 02/03/2023 Encounter for screening for endocrine disorder (ICD-10 - Z13.29) 02/03/2023 Encounter for screening for lipoid disorders (ICD-10 - Z13.220) 02/03/2023 Encounter for screening for nutritional disorder (ICD-10 - Z13.21) 02/03/2023 Encounter for screening for osteoporosis (ICD-10 - Z13.820) 02/03/2023 Encounter for screening for other suspected endocrine disorder (ICD-10 - Z13.29) 02/03/2023 Other New patient wel comed to [facility] and complete intake was obtained. Patient handbook reviewed and signed receipt. Time spent with patient >70 minutes which included medication reconciliation, review of office policies and procedures, review of medical and family history, and discussion/exam with provider. 05/09/2023 Other Propranolol Ora l Tablet (PROPRANOLOL - ORAL) material was published Total time spent with patient 39 minutes which includes face to face visit, education and coordination of care. 09/11/2023 Other Total time spen t with patient 31 minutes which includes face to face visit, education and coordination of care. PLAN OF TREATMENT No Information Insurance Providers Payer Name Payer Address Payer Phone Subscriber Number Group Number Insured Name Patient Relationship to Insured Coverage Start Date Coverage End Date [facility] [address] [place], [place] [id number] DENICE POTTER Self - patient is the insured [facility] [address] [place] [address] [id number] DENICE POTTER Self - patient is the insured MEDICAL (GENERAL) HISTORY Medical History History ICD Code Anxiety Depression Irregular Menses (on BCP for control) Febral Temperature Wears glasses Surgical History Surgery Date(Month/Year) None to note
--- NOTE | 2023-09-23 23:30 | ED.GENADULT ---
HPI - General Adult General Chief complaint: Extremity Problem Stated complaint: right hip pain Time Seen by Provider: 09/23/23 23:02 Source: patient and family (Mother) Mode of arrival: ambulatory History of Present Illness HPI narrative: Is a 17-year-old female who presents with right hip pain that is atraumatic in nature and started 2 hours prior to arrival, patient was laying down on her bed when the pain started, patient took ibuprofen around 2030. Mother states patient had mild nausea. Patient denies any urinary pain/burning but also points to the right flank in terms of location of her discomfort. Related Data Home Medications Medication Instructions Recorded Confirmed norethindrone 1 mg-ethinyl 1 tab PO DAILY 04/28/23 04/28/23 estradiol 35 mcg tablet (Nortrel) Previous Rx's Medication Instructions Recorded cariprazine 3 mg capsule (Vraylar) 3 mg PO DAILY 30 days #30 caps 05/04/23 clonidine HCl 0.1 mg tablet 0.1 mg PO BID 30 days #60 tabs 05/04/23 dexmethylphenidate 30 mg 30 mg PO DAILY 30 days #30 caps 05/04/23 capsule,extended release [id number] fluoxetine 20 mg capsule 60 mg (3 x 20 mg) PO DAILY 30 days 05/04/23 #90 caps Allergies Allergy/AdvReac Type Severity Reaction Status Date / Time No Known Allergies Allergy Verified 03/02/22 20:03 [No Known Allergies*] Review of Systems Review of Systems: Pertinent positives and negatives as stated in HPI [facility] Past Medical History Source: nursing notes reviewed Medical History Adopted PTSD (post-traumatic stress disorder) Social History Social History Household Members: Family Housing: House Do you presently have visiting nurse or other home services: No Alcohol intake: never Patient Tobacco Use Status: Never used Tobacco Smoked in Last 30 Days: No e-Cigarette/Vaping Use: Never Used Use of substances other than those prescribed or required for medical reasons: No Advance Directives: No Advance Directives Information Provided: No Patient : No service: No Sexual orientation: Did not discuss Physical Exam ED Vital Signs: Vital Signs - 24 hr 09/23/23 22:07 Temperature 97.5 F Pulse Rate 90 Respiratory Rate 16 Blood Pressure 162/95 H Pulse Oximetry 97 Oxygen Delivery Method Room Air BMI result Body Mass Index 33.6 VITAL SIGNS: Reviewed. GENERAL: Well developed, well nourished, in no acute distress. HEAD: Normocephalic/atraumatic EYES: PERRLA, EOMI EARS: Ext canals without abnormality NOSE: Nares patent bilateral OROPHARYNX: no oral lesions noted, posterior pharynx clear NECK: Supple, no adenopathy LUNGS: Normal breath sounds. No adventitious sounds or accessory muscle use. SpO2<97> CARDIOVASCULAR: Regular rate and rhythm without noted murmurs ABDOMEN: Soft, non-tender, non-distended with bowel sounds. MUSCULOSKELETAL: No tenderness, deformities, or effusions noted on gross inspection. EXTREMITIES: No cyanosis, clubbing or edema. SKIN: Inspection of the skin reveals no rashes NEUROLOGIC: Alert and oriented x 4. Strength and sensation to light touch were grossly intact x 4. Medications Administered Discontinued Medications Generic Name Dose Route Start Last Admin Trade Name Freq PRN Reason Stop Dose Admin Acetaminophen 975 mg 09/23/23 23:02 09/23/23 23:16 Acetaminophen 325 Mg Tablet PO 09/23/23 23:03 Not Given ONCE ONE Acetaminophen 975 mg 09/23/23 23:30 09/23/23 23:43 Acetaminophen 325 Mg Tablet PO 09/23/23 23:31 975 mg ONCE ONE Administration Ibuprofen 400 mg 09/23/23 23:02 09/23/23 23:16 Ibuprofen 400 Mg Tablet PO 09/23/23 23:03 Not Given ONCE ONE Medical Decision Making Medical Decision Making MDM Narrative: 17-year-old female with right hip pain, denies any symptoms of dysuria in so I do not think that this is a urinary tract infection, vigorous abdominal exam benign so very unlikely to be acute cholecystitis or appendicitis. Symptoms not consistent with renal colic. X-ray of the right hip benign and patient currently asymptomatic. I reassured the patient and her mother, informing them that if anything changes with development of fevers or chills or any vomiting 2 please return to the emergency room. Differential Diagnosis Differential Diagnoses: The differential diagnosis associated with the presentation includes Please see the discussion above Admission/Observation Consideration of admission/observation: Escalation of care including admission/observation considered Please see the discussion above Radiology Impression Discussion of test interpretation with radiology: I have reviewed the radiologist's reading. Radiologist Impression: Please see the discussion above Discharge Plan Discharge Clinical Impression: Hip pain, Rt flank pain Patient Disposition: Home, Self-Care Instructions: Flank Pain (ED), Hip Pain (ED) Additional Instructions: 1. Recommend [id number] Tylenol/ibuprofen as needed for pain control. 2. Please do not hesitate to return to the emergency room should you experience any worsening of symptoms to include fevers, chills. Prescriptions: No Action Nortrel () 1-35 mg-mcg tablet 1 tab PO DAILY clonidine HCl 0.1 mg tablet 0.1 mg PO BID 30 Days Qty: 60 1RF fluoxetine 20 mg capsule 60 mg PO DAILY 30 Days Qty: 90 1RF Vraylar 3 mg capsule 3 mg PO DAILY 30 Days Qty: 30 1RF dexmethylphenidate 30 mg capsule,ER biphasic 50-50 30 mg PO DAILY 30 Days Qty: 30 0RF Rx Instructions: Partial Fill upon patient request. Referrals: hSanel Raymundo DNP [Primary Care Provider] - Interventions: ED Discharge Assessment Last Done: 09/23/23 23:51 Discharge Date/Time: 09/23/23 23:53
[2023-09-23] MEDS: Acetaminophen 325 MG TABLET 975 MG PO (23:43)
== END 2023-09-23 23:53 | disposition home or self-care (01) ==
PROVIDERS: Emergency Provider Student in an Organized Health Care Education/Training Program; PCP Registered Nurse
DX: M25.551 Pain in right hip (principal); R10.9 Unspecified abdominal pain; F84.0 Autistic disorder; F32.9 Major depressive disorder, single episode, unspecified; F43.10 Post-traumatic stress disorder, unspecified
CPT/HCPCS: 73502; 99283; 99284

== ENCOUNTER 2024-10-01 22:20 | Emergency (ER) | payer OTHER, MEDICAID, SELFPAY ==
--- NOTE | ~2024-10-01 | XR_ITS ---
CLINICAL HISTORY: sob 1 view chest x-ray Comparison: CR - CHEST 2 VIEWS - 09/14/18 10:31 EST Findings: No consolidation or effusion. Heart size is normal. No acute fracture. IMPRESSION: 1. No acute findings. This document has been electronically signed by: Antoni Marin MD on 10/01/2024 23:40:46
[2024-10-01 22:40] VITALS: BP 151/96; PULSE 108; RESP 18; TEMP 36.4; O2SAT 97; BMI 38.9
[2024-10-01 23:46] LABS: Influenza A PCR NEGATIVE (Negative); Influenza B PCR NEGATIVE (Negative); Resp Syncy Virus RNA Qual PCR NEGATIVE (Negative); SARS COV2 PCR INHOUSE NEGATIVE (Negative)
[2024-10-02 02:10] VITALS: BP 141/99; PULSE 96; RESP 18; TEMP 36.9; O2SAT 97
--- OUTSIDE RECORDS SUMMARY | 2024-10-02 02:27 | XMS_ITS ---
Author [facility] Address [address] [place] [phone] Care Team Providers Care Specimen Transporter Name Role Phone RICKI ROBLES Primary Care Provider [phone] Yadi Esposito Unavailable [phone] ALLERGIES No Known Allergies REASON FOR VISIT Ear pain/blockage MEDICATIONS Medication SIG (Take, Route, Frequency, Duration) Notes Start Date End Date Status Atomoxetine HCl 40 MG 1 capsule in the morning Orally Once a day Not-Taking cloNIDine HCl 0.1 MG 1 tablet Orally Twi ce a day Not-Taking FLUoxetine HCl 60 MG 1 capsule Orally On ce a day Not-Taking Nortrel 135 (28) 1-35 MG-MCG TAKE 1 TABLET BY MOUTH DAILY for 28 Active ARIPiprazole 10 MG 1 tablet Orally Once a day for 30 day(s) 02/03/2023 Not-Taking Triamcinolone Acetonide 0.5 % 1 application External Twice a day for 7 days 05/09/2023 Active Focalin XR 30 MG 1 capsule in the morning Orally Once a day Active Propranolol HCl 10 mg TAKE 1 TABLET BY M OUTH TWICE A DAY NEEDED orally twice a day as needed for 90 days PRN Active Loratadine 10 MG 1 tablet Orally Once a day for 90 days 04/18/2024 05/18/2024 Active Venlafaxine HCl ER 75 MG 1 capsule with food Orally Once a day Active Venlafaxine HCl ER 150 MG 1 capsule with food Orally Once a day Active ARIPiprazole 2 MG 1 tablet Orally Once a day for 30 day(s) 02/03/2023 Not-Taking LaMICtal 100 MG 1 tablet Orally Once a day Active ARIPiprazole 5 MG 1 tablet Orally Once a day for 30 day(s) 02/03/2023 Not-Taking hydrOXYzine HCl Not- Taking SOCIAL HISTORY Tobacco Use: Social History Observation Description Date Details (start date - stop date) Never Smoker NA - NA Sex Assigned At : Social History Observation Description Sex Assigned At Unknown Tobacco Use/Smoking Question Answer Notes Tobacco use: nonsmoker Section Notes: Lives in [place] with mom & brother PROBLEMS Problem Type ICD Code Onset Dates Problem Status W/U Status Risk SNOMED Code Notes Problem Seasonal allergies (J30.2) Active confirmed 412417365 VITAL SIGNS Blood pressure systolic 130 mm Hg 04/18/20 24 Blood pressure diastolic 88 mm Hg 024 Heart Rate 99 /min 04/18/2024 Height 62 in 04/18/2024 Oximetry 98 % 04/18/2024 Height-cm 157.48 cm 04/18/2024 Encounters Encounter Location Date Provider Diagnosis [address] [id number] 04/18/2024 Yadi Esposito Seasonal allergies J30.2 ASSESSMENTS Encounter Date Diagnosis Assessment Notes Treatment Notes Treatment Clinical Notes Section Notes 04/18/2024 Seasonal allergies (ICD-10 - J30.2) Will try anti-histamine to see if this helps Avoid Q-tips Avoid blowing nose too hard Try Claritin daily May consider Flonase FU PRN PLAN OF TREATMENT Medication Medication Name Sig Start Date Stop Date Notes Loratadine 10 MG 1 tablet Orally Once a day for 90 days 05/18/2024 Treatment Notes Assessment Notes Seasonal allergies Will try anti-histamine to see if this helps Avoid Q-tips Avoid blowing nose too hard Try Claritin daily May consider Flonase FU PRN Next Appt Details Follow Up: prn, Reason: Progress Notes * FLAKITA POTTEROB:[birth year] (18 yo F)Acc No.[id number]:04/18/2024 Progress Notes Patient:??DENICE POTTER Provider:??Yadi Esposito DNP :2005?Age:18 Y?Sex:Fe male Date:04/18/2024 Phone: Address:[address] [place] [address], [place], [id number] Pcp:RICKI ROBLES Subjective: * Chief Complaints: * ?Ear pain/blockage * HPI: ?Patient Care Team:? Providers/Specialists: Therapist - JAMMIE Previous Bridge Contractor - [facility]. ?Visit info:? Denice presents in the office today for left ear pain and blockage. Started bothering the patient yesterday morning. ?Denies trauma or use of Q-tips. ?States that her ear does feel a little better today. ?Denies sick contacts or not feeling well. ?Her mom does stat that her nose if runny on most days. * ROS:?Reviewed. * Medical History:?? 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 * Surgical History:??None to n ote * Hospitalization/Major Diagno stic Procedure:?? * Family History:??Brother: eliseo salmeron, Depression, Psychosis from severe depression.?? Adopted - Limited FH known, except multiple mental health issues on both sides and possible diabetes for father. * Social History:?Tobacco Use:??Tobacco Use/Smoking??Tobacco use:??nonsmoker.?Drugs/Alcohol:??Do you smoke marijuana?: Denies. Do you drink alcohol?: No. ?Lives in [place], [place] with mom & brother. * Medications:??TakingLaMICtal 100 MG Tablet 1 tablet Orally Once a day Venlafaxine HCl ER 150 MG Capsule Extended Release 24 Hour 1 capsule with food Orally Once a day Venlafaxine HCl ER 75 MG Capsule Extended Release 24 Hour 1 capsule with food Orally Once a day Focalin XR 30 MG Capsule Extended Release 24 Hour 1 capsule in the morning Orally Once a day Triamcinolone Acetonide 0.5 % Ointment 1 application External Twice a day Propranolol HCl 10 mg Tablet TAKE 1 TABLET BY MOUTH TWICE A DAY NEEDED orally twice a day as needed , Notes to Pharmacist: PRNNortrel (28) 1-35 MG-MCG Tablet TAKE 1 TABLET BY MOUTH DAILY Taking LaMICtal 100 MG Tablet 1 tablet Orally Once a day Taking Venlafaxine HCl ER 150 MG Capsule Extended Release 24 Hour 1 capsule with food Orally Once a day Taking Venlafaxine HCl ER 75 MG Capsule Extended Release 24 Hour 1 capsule with food Orally Once a day Taking Focalin XR 30 MG Capsule Extended Release 24 Hour 1 capsule in the morning Orally Once a day Taking Triamcinolone Acetonide 0.5 % Ointment 1 application External Twice a day Taking Propranolol HCl 10 mg Tablet TAKE 1 TABLET BY MOUTH TWICE A DAY NEEDED orally twice a day as needed , Notes to Pharmacist: PRNTaking Nortrel (28) 1-35 MG-MCG Tablet TAKE 1 TABLET BY MOUTH DAILY Not-TakinghydrOXYzine HCl FLUoxetine HCl 60 MG Tablet 1 capsule Orally Once a day cloNIDine HCl 0.1 MG Tablet 1 tablet Orally Twice a day One in the AM and one in the PMAtomoxetine HCl 40 MG Capsule 1 capsule in the morning Orally Once a day ARIPiprazole 10 MG Tablet 1 tablet Orally Once a day ARIPiprazole 5 MG Tablet 1 tablet Orally Once a day ARIPiprazole 2 MG Tablet 1 tablet Orally Once a day Medication List reviewed and reconciled with the patientNot- Taking hydrOXYzine HCl Not-Taking FLUoxetine HCl 60 MG Tablet 1 capsule Orally Once a day Not-Taking cloNIDine HCl 0.1 MG Tablet 1 tablet Orally Twice a day One in the AM and one in the PMNot-Taking Atomoxetine HCl 40 MG Capsule 1 capsule in the morning Orally Once a day Not-Taking ARIPiprazole 10 MG Tablet 1 tablet Orally Once a day Not- Taking ARIPiprazole 5 MG Tablet 1 tablet Orally Once a day Not-Taking ARIPiprazole 2 MG Tablet 1 tablet Orally Once a day Medication List reviewed and reconciled with the patient * Allergies:??N.K.D.A.no[Aller gies Verified] Objective: * Vitals:??BP:130/88mm Hg, HR: 99/min, Oxygen sat %:98%, Wt: Not Taken - Declined by Patient, Ht: 62 in, Ht-cm: 157.48 cm. * Examination: ?General Examination: ?General appearance:??alert, pleasant, well-nourished and in no acute distress.?Head:??normocephalic, atraumatic.?Eyes:??pupils equal, round, reactive to light and accommodation.?Ears:??normal.?Nose:??nares patent, no lesions, sinuses nontender bilaterally, clear discharge.?Oral cavity:??normal, with good dentition, gums are normal, mucosa moist, no lesions.?Lungs:??clear to auscultation bilaterally, with good air movement and no rales, rhonchi or wheezes.? Assessment: * Assessment: 1.??Seasonal allergies - J30 .2 (Primary)?? Plan: * Treatment: * Procedure Codes:?? * Preventive Medicine:?Last CPE: 11/2022 Colonoscopy: No Endoscopy: No Covid Vac: Yes & 2 boosters Flu Vac: Yes for the season. * Follow Up:??prn * Billing Information: * Visit Code:?? * Procedure Codes:?? * Sign off status: Completed true * Provider:??Yadi Esposito DNP Date:??07/2024 History and Physical Notes * HPI (History of Present Illness) Category Sub-Category Detail Notes Category Not es Patient Care Team Providers/ Specialists: Therapist - [facility] Previous Bridge Contractor - [facility] Visit bibiana Galdamez presents in the office today for left ear pain and blockage. Started bothering the patient yesterday morning. Denies trauma or use of Q-tips. States that her ear does feel a little better today. Denies sick contacts or not feeling well. Her mom does stat that her nose if runny on most days Examination Category Sub-Category Detail Notes Category Not es General Examination General appearance: alert, p leasant, well-nourished and in no acute distress Head: normocephalic, atrau matic Eyes: pupils equal, round, reactive to light and accommodation Ears: normal Nose: nares patent, no les ions, sinuses nontender bilaterally, clear discharge Lungs: clear to auscultatio n bilaterally, with good air movement and no rales, rhonchi or wheezes Oral cavity: normal, with good de ntition, gums are normal, mucosa moist, no lesions
--- OUTSIDE RECORDS SUMMARY | 2024-10-02 02:27 | XMS_ITS ---
Author Organization [facility] Address [address] [place] [phone] Care Team Providers Care Humanities Division Chair Name Role Phone RICKI ROBLES Primary Care Provider REASON FOR VISIT Message - Lab results Encounters Encounter Location Date Provider Diagnosis [address] [id number] 07/17/2024 RICKI ROBLES PLAN OF TREATMENT No Information Progress Notes * FLAKITA POTTEROB:[birth year] (18 yo F)Acc No.[id number]:07/17/2024 Patient:??GRADY POTTER :2005?Age:18 Y?Sex:Fe male Phone: Address:[address] [place] [id number] * true * Date:??
--- OUTSIDE RECORDS SUMMARY | 2024-10-02 02:27 | XMS_ITS | Patient Health Record ---
Author Organization [facility] Address [address] [place] [phone] Care Team Providers Care Partner Alliance Manager Name Role Phone RICKI ROBLES Primary Care Provider Yadi Esposito Unavailable [phone] ALLERGIES No Known Allergies RESULTS Component Value Reference Range Notes CBC (INCLUDES DIFF/PLT) (329 8) Reviewed date:07/15/2024 07:00:22 AM Interpretation: Performing Lab:NL2, [facility] [id number] Ginger Brown Notes/Report: FASTING: NO FASTING:NO NON-FASTING; NON-FASTING WHITE BLOOD CELL COUNT 8.6 3.8-10.8 Thousand/ uL RED BLOOD CELL COUNT 5.04 3.80-5.10 Million/uL HEMOGLOBIN 12.6 11.7-15.5 g/dL HEMATOCRIT 39.1 35.0-45.0 % MCV 77.6 80.0-100.0 fL MCH 25.0 27.0-33.0 pg MCHC 32.2 32.0-36.0 g/dL For adults, a slight decrease in the calculated MCHC value (in the range of 30 to 32 g/dL) is most likely not clinically significant; however, it should be interpreted with caution in correlation with other red cell parameters and the patient's clinical condition. RDW 15.1 11.0-15.0 % PLATELET COUNT 432 140-400 Thousand/uL MPV 10.0 7.5-12.5 fL ABSOLUTE NEUTROPHILS 3939 9905-4879 cells/uL ABSOLUTE LYMPHOCYTES 3853 850-3900 cells/uL ABSOLUTE MONOCYTES 585 200-950 cells/uL ABSOLUTE EOSINOPHILS 198 15-500 cells/uL ABSOLUTE BASOPHILS 26 0-200 cells/uL NEUTROPHILS 45.8 LYMPHOCYTES 44.8 MONOCYTES 6.8 EOSINOPHILS 2.3 BASOPHILS 0.3 COMPREHENSIVE METABOLIC PANE L (27933) Reviewed date:07/15/2024 07:00:22 AM Interpretation: Performing Lab:NL2, [facility] [employer] [id number] [place], [place] [id number] Ginger Brown Notes/Report: NON-FASTING; NON-FASTING FASTING:NO FASTING: NO GLUCOSE 105 65-139 mg/dL Non-fasting reference interval UREA NITROGEN (BUN) 10 7-25 mg/dL CREATININE 0.64 0.50-0.96 mg/dL EGFR 130 > OR = 60 mL/min/1.73m2 BUN/CREATININE RATIO SEE NOTE: 6- (calc) Not Reported: BUN and Creatinine are within reference range. SODIUM 135 135-146 mmol/L POTASSIUM 4.2 3.5-5.3 mmol/L CHLORIDE 101 98-110 mmol/L CARBON DIOXIDE 25 20-32 mmol/L CALCIUM 9.7 8.6-10.2 mg/dL PROTEIN, TOTAL 7.3 6.1-8.1 g/dL ALBUMIN 4.1 3.6-5.1 g/dL GLOBULIN 3.2 1.9-3.7 g/dL (calc) ALBUMIN/GLOBULIN RATIO 1.3 1.0-2.5 (calc) BILIRUBIN, TOTAL 0.2 0.2-1.2 mg/dL ALKALINE PHOSPHATASE 97 31-125 U/L AST 15 10-30 U/L ALT 17 6-29 U/L REASON FOR REFERRAL No Information MEDICATIONS Medication SIG (Take, Route, Frequency, Duration) Notes Start Date End Date Status Propranolol HCl 10 mg TAKE 1 TABLET BY M OUTH TWICE A DAY NEEDED orally twice a day as needed for 90 days PRN Active Triamcinolone Acetonide 0.5 % 1 application External Twice a day for 7 days 05/09/2023 Active Focalin XR 30 MG 1 capsule in the morning Orally Once a day Active Atomoxetine HCl 40 MG 1 capsule in the morning Orally Once a day Not-Taking cloNIDine HCl 0.1 MG 1 tablet Orally Twi ce a day Not-Taking FLUoxetine HCl 60 MG 1 capsule Orally On ce a day Not-Taking Nortrel () 1-35 MG-MCG TAKE 1 TABLET BY MOUTH DAILY for 28 Active Venlafaxine HCl ER 75 MG 1 [...] day(s) 02/03/2023 Not-Taking hydrOXYzine HCl Not- Taking ARIPiprazole 10 MG 1 tablet Orally Once a day for 30 day(s) 02/03/2023 Not-Taking SOCIAL HISTORY Tobacco Use: Social History Observation Description Date Details (start date - stop date) Never Smoker NA - NA Sex Assigned At : Social History Observation Description Sex Assigned At Unknown Tobacco Use/Smoking Question Answer Notes Tobacco use: nonsmoker Section Notes: Lives in [place], M A with mom & brother Lives in [place], M A with mom & brother Lives in [place], M A with mom & brother Lives in [place], M A with mom & brother Lives in [place], M A with mom & brother Lives in [place], M A with mom & brother Lives in [place], M A with mom & brother Lives in [place], M A with mom & brother PROBLEMS Problem Type ICD Code Onset Dates Problem Status W/U Status Risk SNOMED Code Notes Problem Failure to thrive (child) (R62.51) Active confirmed Failure to thrive (27508249) Problem Seasonal allergies (J30.2) Active confirmed [id number] Problem Anxiety (F41.9) Active confirmed Anxiety (63100215) VITAL SIGNS Heart Rate 99 /min 04/18/2024 Height-cm 157.48 cm 04/18/2024 Oximetry 98 % 04/18/2024 Blood pressure diastolic 88 mm Hg 04/18/2024 Weight-kg 86.27 kg 03/19/2024 Height 62 in 04/18/2024 Blood pressure systolic 130 mm Hg 04/18/2024 Weight 190.2 lbs 03/19/2024 BMI 34.78 kg/m2 03/19/2024 Encounters Encounter Location Date Provider Diagnosis [address], [place] [phone] 03/19/2024 Yadi Esposito Local skin infection L08.[address] [id number] 04/18/2024 Yadi Esposito Seasonal allergies J30.2 [address] [place] [id number] 11/29/2023 RICKI ROBLES [address] [id number] 04/05/2024 RICKI ROBLES [address] [id number] 07/11/2024 RICKI ROBLES Anxiety F41.9 and Always tired R53.[address] [id number] 07/17/2024 RICKI ROBLES ASSESSMENTS Encounter Date Diagnosis Assessment Notes Treatment Notes Treatment Clinical Notes Section Notes 03/19/2024 Local skin infection (ICD-10 - L08.9) Wash the bites: Use soap and water to wash the bites to reduce the risk of infection.Apply ice: Apply an ice pack frequently to help reduce swelling.Use topical creams: Apply calamine lotion, pramoxine-containin g lotions, or topical corticosteroids to reduce inflammation and itching. You can also try applying toothpaste to the area for 10 minutes.Take antihistamines: You can try oral antihistamines like cetirizine, loratadine, or diphenhydramine (Benadryl) to reduce itching. 04/18/2024 Seasonal allergies (ICD-10 - J30.2) Will try anti-histamine to see if this helps Avoid Q-tips Avoid blowing nose too hard Try Claritin daily May consider Flonase FU PRN 07/11/2024 Anxiety (ICD-10 - F41.9) 07/11/2024 Always tired (ICD-10 - R53.83) PLAN OF TREATMENT No Information Insurance Providers Payer Name Payer Address Payer Phone Subscriber Number Group Number Insured Name Patient Relationship to Insured Coverage Start Date Coverage End Date [facility] [address] GREG ALEJANDRA [id number] GRADY POTTER Self - patient is the insured [facility] [address] [place]IELIECERGREG [id number] GRONSKI, GRADY Self - patient is the insured MEDICAL (GENERAL) HISTORY Medical History History ICD Code Anxiety Depression Irregular Menses (on BCP for control) Febral Temperature Wears glasses Surgical History Surgery Date(Month/Year) None to note
[2024-10-02] MEDS: methylPREDNISolone Sod Succ 125 MG/2 ML VIAL IVPUSH (03:24)
[2024-10-02 03:38] VITALS: PULSE 84; RESP 18; O2SAT 97
[2024-10-02] MEDS: Albuterol Sulfate 5 MG, Albuterol Sulfate (0.083%) 2.5 MG 7.5 MG INHALE (03:39)
--- NOTE | 2024-10-02 03:43 | ED.GENADULT ---
HPI - General Adult General Chief complaint: Dyspnea Stated complaint: Wheezing Time Seen by Provider: 10/02/24 02:58 Source: patient and family Limitations: no limitations History of Present Illness ED Provider: Oxana Middleton PA-C HPI narrative: 19-year-old female with a history of PTSD, autism spectrum and depression, presents with cough and cold symptoms over the past few days. Patient states she thought the dust in her home was causing her to wheeze. Denies fevers or sick contacts with similar symptoms. Related Data Home Medications ?Medication ?Instructions ?Recorded ?Confirmed norethindrone 1 mg-ethinyl 1 tab PO DAILY 04/28/23 04/28/23 estradiol 35 mcg tablet (Nortrel) Previous Rx's ?Medication ?Instructions ?Recorded cariprazine 3 mg capsule (Vraylar) 3 mg PO DAILY 30 days #30 caps 05/04/23 clonidine HCl 0.1 mg tablet 0.1 mg PO BID 30 days #60 tabs 05/04/23 dexmethylphenidate 30 mg 30 mg PO DAILY 30 days #30 caps 05/04/23 capsule,extended release [id number] fluoxetine 20 mg capsule 60 mg (3 x 20 mg) PO DAILY 30 days 05/04/23 #90 caps albuterol sulfate 90 mcg/actuation 2 puff inhalation Q4-6H PRN 10/02/24 aerosol inhaler shortness of breath or wheezing #8.5 grams prednisone 20 mg tablet 60 mg (3 x 20 mg) PO DAILY 5 days 10/02/24 #15 tabs Allergies Allergy/AdvReac Type Severity Reaction Status Date / Time No Known Allergies Allergy Verified 10/01/24 22:43 [No Known Allergies*] Review of Systems Review of Systems: Yes all other systems are reviewed and are negative Constitutional: Constitutional: Denies fatigue and Denies fever(s) Cardiovascular: Cardiovascular: Denies chest pain and Reports dyspnea Respiratory: Respiratory: Denies chest congestion, Reports cough, Reports dyspnea and Reports wheezing Gastrointestinal: Gastrointestinal: Denies diarrhea, Denies nausea and Denies vomiting Endocrine: Endocrine: Denies fatigue Allergic/Immunologic: Allergic/Immunologic: Reports wheezing PMFSH Past Medical History Attestation statement: The following information was validated with the patient. Medical History Adopted PTSD (post-traumatic stress disorder) Social History Social History Household Members: Family Housing: House Do you presently have visiting nurse or other home services: No Alcohol intake: never Patient Tobacco Use Status: Never used Tobacco e-Cigarette/Vaping Use: Never Used Advance Directives: No Do you have a plan to hurt others: No Plan service: No Sexual orientation: Did not discuss Physical Exam ED Vital Signs: Vital Signs - 24 hr 10/01/24 22:40 10/02/24 02:10 10/02/24 03:38 Temperature 97.6 F 98.5 F Pulse Rate 108 H 96 84 Respiratory Rate 18 18 18 Blood Pressure 151/96 H 141/99 H Pulse Oximetry 97 97 Oxygen Delivery Method Room Air Room Air 10/02/24 05:23 Temperature 98 F Pulse Rate 88 Respiratory Rate 16 Blood Pressure 142/87 H Pulse Oximetry 97 Oxygen Delivery Method Room Air BMI result Body Mass Index 38.9 Const Other: Alert Orientation/consciousness: patient oriented x3 Resp Other: nonlabored respirations, speaking in full sentences, scattered expiratory wheezes posterior william Cardio Other: normal peripheral perfusion Skin Other: warm dry no rash Neuro General: patient oriented x3, gait normal, no focal motor deficits and CN's II-XI intact bilaterally Psych Other: cooperative, child-like Course Course Course Narrative: we will signed out to the night team pending reassessment and final disposition 10/02/2024 Dr. Jun Saldana's note I assumed care of this patient from my colleague, physician assistant branch manager, Oxana Middleton at 04:00 hours. 19-year-old female with a history of PTSD, autism spectrum and depression, presents with cough x2 months with worsening symptoms over 2 days including increased frequency of cough, shortness of breath and dyspnea on exertion. The patient denied fever, chills, chest pain, nausea, vomiting or diarrhea. My independent interpretation patient's laboratory evaluation is as follows: COVID-19, influenza and RSV tests My independent interpretation of the patient's one-view chest x-ray is as follows: No acute disease seen The patient was treated with albuterol 7.5 mg nebulizer and Solu-Medrol 125 mg IV. The patient was physical examination did reveal improvement of her wheezing. The patient most likely has viral bronchitis with bronchospasm and I did discuss this with the patient and the patient's mother. The patient was started on prednisone 60 mg once a day for 5 days and albuterol inhaler 2 puffs every 4-6 hours as needed for shortness of breath. She was given printed and verbal instructions and discharged home. Medications Administered Discontinued Medications Generic Name Dose Route Start Last Admin Trade Name [place] PRN Reason Stop Dose Admin Albuterol Sulfate 5 mg/ 7.5 mg 10/02/24 03:37 10/02/24 03:39 Albuterol Sulfate 2.5 mg INHALE 10/02/24 03:38 7.5 mg ONCE ONE Administration Methylprednisolone Sodium Succinate 125 mg 10/02/24 03:12 10/02/24 03:24 Methylprednisolone Sod Succ 125 Mg/2 Ml Vial IVPUSH 10/02/24 03:13 125 mg ONCE ONE Administration Medical Decision Making Medical Decision Making [facility] Narrative: 19-year-old female with a history of PTSD, autism spectrum and depression, presents with cough and cold symptoms over the past few days. Patient states she thought the dust in her home was causing her to wheeze. Denies fevers or sick contacts with similar symptoms. problem: Psychiatric illness History: Per patient and her mother I have considered the following differential diagnoses: Asthma exacerbation, viral syndrome, bronchitis, pneumonia Plan: Viral panel and chest x-ray were obtained from triage, they are negative. We will be giving steroid and an updraft we will reassess. I have independently reviewed the following tests: Labs: Viral panel negative Chest x-ray:Findings: No consolidation or effusion. Heart size is normal. No acute fracture. IMPRESSION: 1. No acute findings. This document has been electronically signed by: Antoni Marin MD on 10/01/2024 23:40:46 Admission/Observation Consideration of admission/observation: Escalation of care including admission/observation considered ( yes) Lab Data [facility] Lab Attestation statement: I reviewed the patient's lab results. Labs: Lab Results 10/01/24 Range/Units 22:47 Influenza Type A (PCR) NEGATIVE (Negative) Influenza Type B (PCR) NEGATIVE (Negative) RSV RNA Qual (PCR) NEGATIVE (Negative) SARS-CoV-2 RNA (RT-PCR) NEGATIVE (Negative) Prescription Management I considered prescription management with: Other ( anti-inflammatory steroid: Prednisone; bronchodilator: Albuterol inhaler) Discharge Plan Discharge Clinical Impression: Acute bronchitis, Acute bronchospasm Patient Disposition: Home, Self-Care Instructions: Acute Bronchitis (ED), Bronchospasm (ED) Additional Instructions: Your chest x-ray was unremarkable. Your symptoms are consistent with bronchitis and spasm of your breathing tubes. Take prednisone 20 mg pills, 3 pills once a day for 5 days. While you are taking prednisone, do not take any NSAIDs (Motrin, Advil, ibuprofen, Aleve, naproxen). Use the albuterol inhaler with the spacer, 2 puffs every 4-6 hours as needed for shortness of breath and wheezing. Follow-up with your doctor in 2 days. Please return to the emergency department if your symptoms get worse or if you develop any symptoms that are concerning to you. Prescriptions: New albuterol sulfate 90 mcg/actuation HFA aerosol inhaler 2 puff inhalation Q4-6H PRN (Reason: shortness of breath or wheezing) Qty: 8.5 0RF prednisone 20 mg tablet 60 mg PO DAILY 5 Days Qty: 15 0RF No Action Nortrel 1/35 (28) 1-35 mg-mcg tablet 1 tab PO DAILY clonidine HCl 0.1 mg tablet 0.1 mg PO BID 30 Days Qty: 60 1RF fluoxetine 20 mg capsule 60 mg PO DAILY 30 Days Qty: 90 1RF Vraylar 3 mg capsule 3 mg PO DAILY 30 Days Qty: 30 1RF dexmethylphenidate 30 mg capsule,ER biphasic 50-50 30 mg PO DAILY 30 Days Qty: 30 0RF Rx Instructions: Partial Fill upon patient request. Interventions: ED Discharge Assessment Last Done: 10/02/24 05:23 Discharge Date/Time: 10/02/24 05:24 Print Language: Iraqi
[2024-10-02 05:23] VITALS: BP 142/87; PULSE 88; RESP 16; TEMP 36.6; O2SAT 97
== END 2024-10-02 05:24 | disposition home or self-care (01) ==
PROVIDERS: Emergency Provider Emergency Medicine Emergency Medical Services
DX: J20.9 Acute bronchitis, unspecified (principal); R05.9 Cough, unspecified; R06.02 Shortness of breath; Z03.818 Encounter for observation for suspected exposure to other biological agents ruled out; Z79.899 Other long term (current) drug therapy
CPT/HCPCS: 0241U; 71045; 94640; 96374; 99284; J2919

== ENCOUNTER → 2024-10-01 23:15 | Outpatient (BNV) | payer OTHER, MEDICAID, SELFPAY | PROVIDERS: Visit Provider Radiology Diagnostic Radiology | DX: R06.2 Wheezing (principal) | CPT/HCPCS: 71045 ==

== ENCOUNTER 2024-12-09 17:38 | Emergency (ER) | payer OTHER, MEDICAID, SELFPAY ==
[2024-12-09 18:00] VITALS: BP 132/87; PULSE 100; RESP 19; TEMP 36.6; O2SAT 99; BMI 40.7
--- NOTE | 2024-12-09 18:05 | ED_ITS ---
HPI - General Adult General Chief complaint: General Medical Stated complaint: vaginal/rectal bleeding Time Seen by Provider: 12/09/24 20:37 Source: patient Mode of arrival: ambulatory Limitations: no limitations History of Present Illness ED Provider: Aliyah Stark NP HPI narrative: Patient is a 19-year-old female who presents emergency department with mother for evaluation. Reports that 4 days ago she began experiencing vaginal bleeding associated with pushing for a bowel movement. Patient and mother endorse a longstanding history of episodic diarrhea and constipation as well as known hemorrhoids. Patient endorses having some mild discomfort to the area as well. Yesterday night she began experiencing vaginal bleeding. Patient mother report that she is currently on 21 day cycle of oral contraception, continuous cycle due to previous heavy menstrual cycles and STACY. Is not typically experienced breakthrough bleeding. She has not needed to wear a sanitary napkin with the amount of bleeding. Denies fevers, chills, nausea, vomiting, abdominal pain, back pain, pelvic pain. When asked she denies having any vaginal discharge. Not sexually active nor has she ever been in the past. Denies dysuria, urinary frequency/urgency/hesitancy. Related Data Home Medications ?Medication ?Instructions ?Recorded ?Confirmed norethindrone 1 mg-ethinyl 1 tab PO DAILY 04/28/23 04/28/23 estradiol 35 mcg tablet (Nortrel) Previous Rx's ?Medication ?Instructions ?Recorded cariprazine 3 mg capsule (Vraylar) 3 mg PO DAILY 30 days #30 caps 05/04/23 clonidine HCl 0.1 mg tablet 0.1 mg PO BID 30 days #60 tabs 05/04/23 dexmethylphenidate 30 mg 30 mg PO DAILY 30 days #30 caps 05/04/23 capsule,extended release [id number] fluoxetine 20 mg capsule 60 mg (3 x 20 mg) PO DAILY 30 days 05/04/23 #90 caps albuterol sulfate 90 mcg/actuation 2 puff inhalation Q4-6H PRN 10/02/24 aerosol inhaler shortness of breath or wheezing #8.5 grams prednisone 20 mg tablet 60 mg (3 x 20 mg) PO DAILY 5 days 10/02/24 #15 tabs fluconazole 150 mg tablet 150 mg PO ONCE #1 tab 12/09/24 Allergies Allergy/AdvReac Type Severity Reaction Status Date / Time No Known Allergies Allergy Verified 12/09/24 18:03 [No Known Allergies*] Review of Systems 2 Review of Systems: Yes all other systems are reviewed and are negative [facility] Past Medical History Attestation statement: The following information was validated with the patient. Source: old records reviewed Medical History Adopted PTSD (post-traumatic stress disorder) Social History Social History Household Members: Family Housing: House Do you presently have visiting nurse or other home services: No Alcohol intake: never Patient Tobacco Use Status: Never used Tobacco e-Cigarette/Vaping Use: Never Used Advance Directives: No Advance Directives Information Provided: No Do you have a plan to hurt others: No Plan service: No Sexual orientation: Did not discuss Physical Exam ED Vital Signs: Vital Signs - 24 hr 12/09/24 18:00 12/09/24 20:00 12/09/24 22:00 Temperature 98 F 98.3 F 97.3 F Pulse Rate 100 99 91 Respiratory Rate 19 16 16 Blood Pressure 132/87 140/93 H 133/85 Pulse Oximetry 99 100 99 Oxygen Delivery Method Room Air Room Air Room Air 12/09/24 23:30 Temperature 97.3 F Pulse Rate 91 Respiratory Rate 16 Blood Pressure 133/85 Pulse Oximetry 99 Oxygen Delivery Method Room Air BMI result Body Mass Index 40.7 Appearance: Alert.?Oriented to person, place and time. No acute distress.?Normal affect. CVS: Heart sounds normal. Normal heart rate and rhythm.? Pulses normal.?? Respiratory: No respiratory distress.? Lung sounds clear to auscultation bilaterally?? Abdomen: Soft and non-tender. Normoactive bowel sounds. No pulsatile mass.??No CVAT. Genitourinary:? Supervised by ED pc technician Yue. Normal external appearance of urethra.? No lesions/lacerations or discharge or tenderness noted. No Bartholin cyst noted.? Speculum exam: normal appearance/palpation of vagina normal. There is a copious amount of clumpy white/yellow vaginal discharge, without vaginal swelling, erythema, laceratons, or active bleeding noted.?No foreign bodies noted.? No vaginal tenderness noted.? Normal appearance of cervix. Normal palpation of cervix.? Cervical os is closed.? Unable to tolerate bimanual examination. Rectal: Performed with supervision as noted above. Presence of external hemorrhoids, no fissures, no palpable rectal mass. Skin: Skin warm and dry.? Normal skin color.? Extremities: No lower extremity edema.? Neuro: Moves all extremities spontaneously. Sensation intact bilaterally. Ambulates with normal steady gait. Course Course Course Narrative: RME: 19-year-old female presents to ED for rectal bleeding also vaginal bleeding for the past couple of days. Patient denies any abdominal pain or syncopal episodes. Labs ordered. Medications Administered Discontinued Medications Generic Name Dose Route Start Last Admin Trade Name Freq PRN Reason Stop Dose Admin Fluconazole 150 mg 12/09/24 23:06 12/09/24 23:16 Fluconazole 150 Mg Tablet PO 12/09/24 23:07 150 mg ONCE ONE Administration Medical Decision Making Medical Decision Making [facility] Narrative: Patient is a 19-year-old female past medical history of autism, developmental delay, per mother has or hygiene practices secondary to sensory issues which they are working on with her therapist. For 4 days she has noticed bright red blood per rectum when straining for a bowel movement, has a known history of hemorrhoids. Has chronic intermittent diarrhea and constipation. Denies any melena or abdominal pain. Her abdominal examination is benign. Reviewed with patient and mother she may have underlying IBS, IBD given her longstanding history, they plan to speak with her primary care doctor about a referral to Gastroenterology which I feel is appropriate. On physical exam she does have external hemorrhoids, likely the source of her bleeding. Since yesterday she has also endorsed vaginal bleeding as per HPI. At the time of my evaluation, with speculum exam there is no evidence of vaginal bleeding, I also did not note there to be any bleeding on her undergarments and she has not needed to use a sanitary napkin for this. She does have a copious amount of white/yellow vaginal discharge concerning for yeast infection but I did additionally send swabs to the lab for bacterial vaginosis, Trichomonas, chlamydia and gonorrhea. With mother present in the room she denies any prior sexual activity, however given her age out of abundance of caution I have sent this down to the lab. Serum hCG is negative. Urinalysis shows leukocyte esterase 1+ urine bacteria squamous epithelial cells present, has had similar urinalysis in the past consistent with urogenital contamination and she is not having urinary symptoms, would defer course of treatment with antibiotics at this time. She received a single dose of fluconazole in the emergency department and I additionally sent 1 more dose to the pharmacy should she continue to have symptoms in the next 3 days patient and mother were instructed to take the 2nd dosage. She is scheduled to follow up with her primary care doctor in 2 days which I feel is appropriate. We discussed strict return precautions. All questions answered. Differential Diagnosis Differential Diagnoses: The differential diagnosis associated with the presentation includes (See narrative above) Lab Data MDM Lab Attestation statement: I reviewed the patient's lab results. No leukocytosis anemia or thrombocytopenia. No electrolyte derangement. No TABATHA. Urinalysis findings as per above. 12/09/24 18:35 12/09/24 18:35 Labs: Lab Results 12/09/24 12/09/24 Range/Units 18:35 22:52 WBC 8.2 (4.8-10.8) X10*3/uL RBC 4.49 (4.20-5.50) X10*6/uL Hgb 12.5 (12.0-16.0) g/dl Hct 38.0 (37.0-47.0) % MCV 84.6 (80.0-98.0) fL MCH 27.8 (27.0-33.0) pg MCHC 32.9 (31.0-35.0) g/dl RDW 15.9 (11.0-16.0) % Plt Count 330 (160-400) X10*3/uL MPV 8.9 L (9.4-12.3) fL Immature Gran % (Auto) 0.4 (0.0-0.4) % Neut % (Auto) 43.2 L (45-73) % Lymph % (Auto) 44.2 H (20-40) % [place] % (Auto) 9.1 (2-11) % Eos % (Auto) 2.6 (0-4) % Baso % (Auto) 0.5 (0-2) % Lymph # (Auto) 3.6 (1.2-4.9) X10*3/uL [place] # (Auto) 0.8 (0.1-1.2) X10*3/uL Eos # (Auto) 0.2 (0.0-0.4) X10*3/uL Baso # (Auto) 0.0 (0.0-0.2) X10*3/uL Abs Immat Gran (auto) 0.03 (0.00-0.03) X10*3/uL Absolute Neuts (auto) 3.6 (2.0-8.3) x10*3/uL Absolute Nucleated RBC 0.000 (0.0-0.012) X10*3/uL Nucleated RBC % (auto) 0.0 (0.0-0.2) /100WBC Sodium 141 (135-145) mmol/L Potassium 3.9 (3.3-5.1) mmol/L Chloride 108 (96-108) mmol/L Carbon Dioxide 25 (22-29) mmol/L Anion Gap 12 (12-20) BUN 8 L (9-16) mg/dL Creatinine 0.65 (0.5-1.4) mg/dL Estim Creat Clear Calc 152.2 Estimated GFR > 60 Random Glucose 105 (60-115) mg/dL Calcium 9.3 (8.4-10.2) mg/dL Total Bilirubin 0.2 (0.0-1.0) mg/dL AST 42 H (5-31) U/L ALT 52 H (0-31) U/L Alkaline Phosphatase 88 (39-117) U/L Total Protein 6.7 (6.5-8.0) g/dL Albumin 3.9 (3.5-5.0) g/dL Beta HCG, Quant < 2 mIU/mL Urine Color Yellow Urine Appearance Turbid Urine pH 6.5 (5.0-9.0) Ur Specific [place] 1.025 (1.005-1.025) Urine Protein Trace (Neg-Trace) mg/dL Urine Glucose (UA) Negative (Negative) mg/dL Urine Ketones Trace (Negative) mg/dL Urine Blood Negative (Negative) Urine Nitrite Negative (Negative) Ur Leukocyte Esterase Moderate (2+) H (Negative) Urine RBC 0-2 (0-2) /HPF Urine WBC 0-5 (0-5) /HPF Ur Squamous Epith Cells 6-10 (0-2) /HPF Other Crystals Present Urine Bacteria 2+ (None Seen) Hyaline Casts 0-2 (0-2) /LPF Chlam trachomat DNA PCR NOT DETECTED (Not Detect.) N.gonorrhoeae DNA (PCR) NOT DETECTED (Not Detect.) Independent Historian Clinical information obtained from an independent historian. History obtained from or confirmed by: Parent External Record Review External record reviewed: Outpatient record Prescription Management I considered prescription management with: Other (See narrative above) Discharge Plan Discharge Clinical Impression: Vaginal bleeding, Hemorrhoids Patient Disposition: Home, Self-Care Additional Instructions: As discussed, exam today is concerning for vaginal infection given the presence of the discharge. You received a dose of Diflucan in the emergency department to treat a yeast infection. If in 3 days symptoms are still occurring, you may take the 2nd dose of Diflucan that has been sent to the pharmacy. Additional testing for infections of the vaginal area has been sent to the lab and should result in a few days. If there is a positive test result you will receive a phone call from this hospital. Infections of the vagina can result in bleeding There are hemorrhoids visualized on exam today, which also can result in bleeding and some mild discomfort as you mentioned. Blood work today was very reassuring, blood counts are stable meeting that despite the bleeding she has not lost a significant amount of blood that would require transfusion. Please follow-up with primary care doctor in 2 days as scheduled. You may return to emergency department any new or worsening symptoms or concerns. Prescriptions: New fluconazole 150 mg tablet 150 mg PO ONCE Qty: 1 0RF No Action Nortrel (28) 1-35 mg-mcg tablet 1 tab PO DAILY clonidine HCl 0.1 mg tablet 0.1 mg PO BID 30 Days Qty: 60 1RF fluoxetine 20 mg capsule 60 mg PO DAILY 30 Days Qty: 90 1RF Vraylar 3 mg capsule 3 mg PO DAILY 30 Days Qty: 30 1RF dexmethylphenidate 30 mg capsule,ER biphasic 50-50 30 mg PO DAILY 30 Days Qty: 30 0RF Rx Instructions: Partial Fill upon patient request. albuterol sulfate 90 mcg/actuation HFA aerosol inhaler 2 puff inhalation Q4-6H PRN (Reason: shortness of breath or wheezing) Qty: 8.5 0RF prednisone 20 mg tablet 60 mg PO DAILY 5 Days Qty: 15 0RF Referrals: Physician,Unknown J [Primary Care Provider] - Interventions: ED Discharge Assessment Last Done: 12/09/24 23:30 Discharge Date/Time: 12/09/24 23:32 Print Language: Yemeni
[2024-12-09 18:46] LABS: MANUAL DIFF FLAG NO
[2024-12-09 18:51] LABS: Appearance Urine Turbid; Color Urine Yellow; Glucose Urine UA Negative (Negative); Leukocyte Esterase Urine Moderate (2+) (Negative); Nitrite Urine Negative (Negative); PH 6.5 (5.0-9.0); Specific Gravity - Urine 1.025 (1.005-1.025); UMIC TRIGGER UACC YES; Urine Blood Negative (Negative); Urine Ketones Trace mg/dL (Negative); Urine Protein Trace mg/dL (Neg-Trace)
[2024-12-09 18:59] LABS: Basophils Percent Auto 0.5 % (0-2); Eosinophils Absolute Auto 0.2 X10*3/uL (0.0-0.4); Eosinophils Percent Auto 2.6 % (0-4); Hemoglobin 12.5 g/dl (12.0-16.0); Imm Gran Abs Auto 0.03 X10*3/uL (0.00-0.03); Imm Gran Pct Auto 0.4 % (0.0-0.4); Lymphocytes Absolute Auto 3.6 X10*3/uL (1.2-4.9); Lymphocytes Percent Auto 44.2 % (20-40); Mean Corpuscular HGB Conc 32.9 g/dl (31.0-35.0); Mean Corpuscular Hemoglobin 27.8 pg (27.0-33.0); Mean Corpuscular Volume 84.6 fL (80.0-98.0); Mean Platelet Volume 8.9 fL (9.4-12.3); Monocytes Absolute Auto 0.8 X10*3/uL (0.1-1.2); Monocytes Percent Auto 9.1 % (2-11); Neutrophils Absolute Auto 3.6 x10*3/uL (2.0-8.3); Neutrophils Percent Auto 43.2 % (45-73); Platelet Count 330 X10*3/uL (160-400); Red Blood Count 4.49 X10*6/uL (4.20-5.50); Red Cell Distribution Width 15.9 % (11.0-16.0); White Blood Count 8.2 X10*3/uL (4.8-10.8)
[2024-12-09 19:12] LABS: Bacteria Urine 2+ (None Seen); Hyaline Casts Urine 0-2 /LPF (0-2); Other Crystals Urine Present; RBC Urine 0-2 /HPF (0-2); UACC Culture Trigger YES; WBC Urine 0-5 /HPF (0-5)
[2024-12-09 19:14] LABS: Alanine Aminotransferase 52 U/L (0-31); Albumin Level 3.9 g/dL (3.5-5.0); Alkaline Phosphatase 88 U/L (39-117); Anion Gap 12 (12-20); Aspartate Amino Transferase 42 U/L (5-31); Bilirubin Total 0.2 mg/dL (0.0-1.0); Blood Urea Nitrogen 8 mg/dL (9-16); Calcium 9.3 mg/dL (8.4-10.2); Carbon Dioxide 25 mmol/L (22-29); Chloride 108 mmol/L (96-108); Creatinine Clr Calc Pharmacy 152.2; Estimated Glomerular Filt Rate > 60; Glucose Random 105 mg/dL (60-115); Potassium 3.9 mmol/L (3.3-5.1); Sodium 141 mmol/L (135-145); Total Protein 6.7 g/dL (6.5-8.0)
[2024-12-09 19:27] LABS: HCG Quantitative < 2 mIU/mL
[2024-12-09 20:00] VITALS: BP 140/93; PULSE 99; RESP 16; TEMP 36.8; O2SAT 100
[2024-12-09 22:00] VITALS: BP 133/85; PULSE 91; RESP 16; TEMP 36.3; O2SAT 99
[2024-12-09] MEDS: Fluconazole 150 MG TABLET PO (23:16)
[2024-12-09 23:30] VITALS: BP 133/85; PULSE 91; RESP 16; TEMP 36.3; O2SAT 99
[2024-12-10 02:58] LABS: CT PCR NOT DETECTED (Not Detect.); NG PCR NOT DETECTED (Not Detect.)
[2024-12-10 08:26] LABS: Bacterial Vaginosis PCR NEGATIVE (Negative); Candida Group PCR DETECTED (Not Detect); Candida glab krusei PCR DETECTED (Not Detect); Trichomonas vaginalis PCR NOT DETECTED (Not Detect)
== END 2024-12-09 23:32 | disposition home or self-care (01) ==
PROVIDERS: Nurse Practitioner Family; Physician Assistant; Emergency Provider Emergency Medicine Emergency Medical Services
DX: N93.9 Abnormal uterine and vaginal bleeding, unspecified (principal); K64.9 Unspecified hemorrhoids; R10.2 Pelvic and perineal pain; Z79.899 Other long term (current) drug therapy
CPT/HCPCS: 36415; 80053; 81001; 81515; 84702; 85025; 87086; 87491; 87591; 99283

== ENCOUNTER 2024-12-31 12:18 | Emergency (ER) | payer OTHER, MEDICAID, SELFPAY ==
--- NOTE | ~2024-12-31 | XR_ITS ---
CLINICAL HISTORY: abd pain, constipation Abdominal radiographs Comparison: None Findings: There is a nonobstructive bowel gas pattern. Stool quantity is normal. No pneumoperitoneum or pneumatosis. No acute osseous or soft tissue abnormality. Impression: No acute findings. This document has been electronically signed by: Paola Robles MD on 12/31/2024 17:33:39
--- NOTE | ~2024-12-31 | US_ITS ---
CLINICAL HISTORY: lower abd tenderness US female pelvis LMP:Unknown. Technique: Ultrasound examination of the pelvis was performed with transabdominal technique. Comparison: None Findings: Anteverted uterus measuring 7.9 x 2.1 x 4.6cm without masses. Normal endometrial thickness of 0.3cm. The right ovary is normal in size, measuring 3.7 x 1.6 x 1.9cm, volume of 5.9mL. There is normal echogenicity and vascularity. No lesions. The left ovary is normal in size, measuring 2.7 x 1.5 x 1.6cm, volume of 3.4mL. There is normal echogenicity and vascularity. No lesions. No free fluid. Impression: Normal pelvic ultrasound. This document has been electronically signed by: Paola Robles MD on 12/31/2024 18:41:08
[2024-12-31 12:49] VITALS: BP 136/90; PULSE 116; RESP 20; TEMP 36.4; O2SAT 96; BMI 40.4
--- NOTE | 2024-12-31 12:50 | ED_ITS ---
HPI - GI Bleed General Chief complaint: Abdominal Pain Stated complaint: Rectal bleeding, abd pain Time Seen by Provider: 12/31/24 15:12 Source: patient, family (Mother) and other (Therapists) Mode of arrival: ambulatory History of Present Illness ED Provider: Ky MILLER Narrative: Patient is a 19-year-old female with history of autism spectrum disorder, cognitive impairment, PTSD, major depression presenting to the emergency department with mother in 2 therapists with multiple complaints. Patient complains of lower abdominal painx 3 days as well as 1 episode of bright red blood in the toilet this morning. Mother reports that patient has been complaining of abdominal pain for several weeks. She is requesting ?some type of imaging. ? Mother reports history of hemorrhoids in the past for which patient was recently seen here on 12/09. States they were advised to follow up with Gastroenterology but appointment is not until February. Mother also reports an episode of green stool around 5 days ago. Patient and mother deny nausea or vomiting. Patient does report loose stools. States patient did not eat anything green or blue they can attribute this to. Mother and therapist also reporting that patient abruptly discontinued all her medications 5 days ago and has been having aggression, agitation, verbal outbursts since that time. Mother states patient has been making suicidal and homicidal statements when she is upset and then minimizes these statements afterwards. Patient currently denies SI, HI, AH, VH. Patient is currently on OCPs on 21 day cycle due to history of AUB. Patient states she is not currently sexually active. Denies concern for STIs, and denies any abnormal vaginal discharge. Mother and therapist expressing concern that patient's abdominal symptoms are psychosomatic. They would like a CARE team evaluation following medical clearance. Mother also expressing concern regarding poor hygiene, patient verbalizing disagreement with this. Per mother, patient makes all her own healthcare decisions and does not have a HCP. Related Data Home Medications ?Medication ?Instructions ?Recorded ?Confirmed norethindrone 1 mg-ethinyl 1 tab PO DAILY 04/28/23 04/28/23 estradiol 35 mcg tablet (Nortrel) Previous Rx's ?Medication ?Instructions ?Recorded cariprazine 3 mg capsule (Vraylar) 3 mg PO DAILY 30 days #30 caps 05/04/23 clonidine HCl 0.1 mg tablet 0.1 mg PO BID 30 days #60 tabs 05/04/23 dexmethylphenidate 30 mg 30 mg PO DAILY 30 days #30 caps 05/04/23 capsule,extended release [id number] fluoxetine 20 mg capsule 60 mg (3 x 20 mg) PO DAILY 30 days 05/04/23 #90 caps albuterol sulfate 90 mcg/actuation 2 puff inhalation Q4-6H PRN 10/02/24 aerosol inhaler shortness of breath or wheezing #8.5 grams prednisone 20 mg tablet 60 mg (3 x 20 mg) PO DAILY 5 days 10/02/24 #15 tabs fluconazole 150 mg tablet 150 mg PO ONCE #1 tab 12/09/24 Allergies Allergy/AdvReac Type Severity Reaction Status Date / Time No Known Allergies Allergy Verified 12/31/24 12:50 [No Known Allergies*] Review of Systems 2 Review of Systems: As per HPI Yes all other systems are reviewed and are negative Constitutional: Constitutional: Reports as per HPI PMFSH Past Medical History Medical History Adopted PTSD (post-traumatic stress disorder) Social History Social History Household Members: Family Housing: House Do you presently have visiting nurse or other home services: No Alcohol intake: never Patient Tobacco Use Status: Never used Tobacco Smoked in Last 30 Days: No e-Cigarette/Vaping Use: Never Used Use of substances other than those prescribed or required for medical reasons: No Advance Directives: No Advance Directives Information Provided: Yes service: No Sexual orientation: Did not discuss Physical Exam 2 Vital Signs: Vital Signs: Last Vital Signs Temp 98.1 F 12/31/24 20:00 Pulse 94 12/31/24 20:00 Resp 17 12/31/24 20:00 BP 144/87 H 12/31/24 20:00 Pulse Ox 97 12/31/24 20:00 O2 Del Method Room Air 12/31/24 20:00 BMI result Body Mass Index 40.4 Vital signs have been reviewed and appear to be correct. Blood pressure normal. Heart rate mildly tachycardic. Respiratory rate normal. Temperature normal. Oxygen saturation normal. Const: General: cooperative, healthy appearing and no acute distress O rientation/consciousness: oriented to person, oriented to place, oriented to time and patient oriented x3 HEENT: Head: Yes normocephalic and Yes atraumatic Ears: external ears normal General nose exam: Normal external nose present Face and sinus: Yes face symmetric Mouth: oropharynx normal and moist mucous membranes Throat: Yes uvula midline Eyes: Pupils: Equal, round and reactive pupils present Neck: Neck: Yes normal visual inspection and Yes supple Resp: Effort & Inspection: normal respiratory effort and able to speak in complete sentences Auscultation: clear to auscultation bilaterally Cardio: Rate: regular rate Rhythm: regular rhythm Heart sounds: S1 normal heart sound present and S2 normal heart sound present GI: Palpation (GI): Soft to palpation, Tenderness to palpation present (GI) in the LLQ (very mild TTP) and in the RLQ (very mild TTP), no guarding and No Rebound tenderness present Auscultation: normoactive bowel sounds : General: Yes no CVA tenderness Back/Spine/Pelvis: Back: no CVA tenderness Skin: General skin exam: elasticity normal and turgor normal Neuro: General: oriented to person, oriented to place, oriented to time, patient oriented x3, moves all extremities, no focal motor deficits and CN's II- XI intact bilaterally Cranial nerves: Yes Equal, round and reactive pupils present Cognition (Neuro): normal cognition Extrem: General: Yes full ROM, Yes no pedal edema and Yes no calf tenderness Psych: Appearance: disheveled Mental Status: mental status grossly normal Affect: normal affect Thought content: suicidality, no homicidality and no hallucinations Insight: Limited insight present (Psych) Judgement: Limited judgement present (Psych) Course Course Course Narrative: This is a Rapid Medical Exam performed in triage by Tawny Olmedo PA-C. Full HPI, ROS and PE to be performed by primary ED provider. 19 yo F w/PMHx PTSD, autism, depression presenting to the ED c/o abdominal pain & bloody stools / blood in toilet bowl x2-3 days. reports noncompliance with psych medications. denies AC use. denies urinary sx, N/V/C PE: nontoxic appearing, ambulating w/steady gait Plan: Labs, UA, occult stool Reevaluation(s) Reevaluation #1: I Oxana Middleton PA-C have accepted care of the patient at signed out pending labs, imaging and care team consult Thus far her medical assessment is negative. She is not having active bleeding her H&H are stable, pelvic ultrasound normal. Placing consult with the care team Pelvic ultrasound:mpression: Normal pelvic ultrasound. KUB: Findings: There is a nonobstructive bowel gas pattern. Stool quantity is normal. No pneumoperitoneum or pneumatosis. No acute osseous or soft tissue abnormality. Impression: No acute findings. Reevaluation #2: The care team assessed the patient, she has been off her medication for 5 days, she is simply agitated and behavioral. She is not suicidal she is not homicidal, there was no indication for inpatient admission, both the mother and the patient or eager for discharge we will do so now Time: 23:06 Medical Decision Making Medical Decision Making [facility] Narrative: Patient is a 19-year-old female with history of autism spectrum disorder, cognitive impairment, PTSD, major depression presenting to the emergency department with mother in 2 therapists with multiple complaints. On exam patient is awake, A+Ox3, VS WNL, afebrile, normal neurological exam without focal deficits, physical exam findings as above. Given reported symptoms and physical exam findings, initial differential includes but is not limited to ovarian cyst, constipation, UTI, hemorrhoids, suicidal ideation, homicidal ideation, medication noncompliance. Unlikely torsion or TOA. Labs unremarkable. KUB notable for no evidence of obstruction, no gross constipation. My interpretation is in agreement with the radiologist's interpretation. Patient signed out to NEVIN Diez pending U/S results/med clearance/CARE team eval. Differential Diagnosis Differential Diagnoses: The differential diagnosis associated with the presentation includes As per [facility] Admission/Observation Consideration of admission/observation: Escalation of care including admission/observation considered Consult Healthcare Provider Management of the patient was discussed with: Behavioral Health Provider Lab Data [facility] Lab Attestation statement: I reviewed the patient's lab results. As per [facility] 12/31/24 13:03 12/31/24 13:03 Labs: Lab Results 12/31/24 12/31/24 12/31/24 Range/Units 13:03 18:10 18:11 WBC 7.8 (4.8-10.8) X10*3/uL RBC 4.73 (4.20-5.50) X10*6/uL Hgb 13.1 (12.0-16.0) g/dl Hct 38.7 (37.0-47.0) % MCV 81.8 (80.0-98.0) fL MCH 27.7 (27.0-33.0) pg MCHC 33.9 (31.0-35.0) g/dl RDW 14.4 (11.0-16.0) % Plt Count 342 (160-400) X10*3/uL MPV 8.7 L (9.4-12.3) fL Immature Gran % (Auto) 0.3 (0.0-0.4) % Neut % (Auto) 57.2 (45-73) % Lymph % (Auto) 34.1 (20-40) % Mills % (Auto) 6.3 (2-11) % Eos % (Auto) 1.8 (0-4) % Baso % (Auto) 0.3 (0-2) % Lymph # (Auto) 2.7 (1.2-4.9) X10*3/uL Mills # (Auto) 0.5 (0.1-1.2) X10*3/uL Eos # (Auto) 0.1 (0.0-0.4) X10*3/uL Baso # (Auto) 0.0 (0.0-0.2) X10*3/uL Abs Immat Gran (auto) 0.02 (0.00-0.03) X10*3/uL Absolute Neuts (auto) 4.4 (2.0-8.3) x10*3/uL Absolute Nucleated RBC 0.000 (0.0-0.012) X10*3/uL Nucleated RBC % (auto) 0.0 (0.0-0.2) /100WBC Sodium 139 (135-145) mmol/L Potassium 3.9 (3.3-5.1) mmol/L Chloride 111 H (96-108) mmol/L Carbon Dioxide 21 L (22-29) mmol/L Anion Gap 11 L (12-20) BUN 7 L (9-16) mg/dL Creatinine 0.64 (0.5-1.4) mg/dL Estim Creat Clear Calc 153.9 Estimated GFR > 60 Random Glucose 119 H (60-115) mg/dL Calcium 9.4 (8.4-10.2) mg/dL Magnesium 1.8 (1.6-2.6) mg/dL Total Bilirubin 0.4 (0.0-1.0) mg/dL Direct Bilirubin 0.1 (0.0-0.5) mg/dL AST 24 (5-31) U/L ALT 33 H (0-31) U/L Alkaline Phosphatase 90 (39-117) U/L Total Protein 6.9 (6.5-8.0) g/dL Albumin 4.0 (3.5-5.0) g/dL Lipase 21 (8-78) U/L Urine Color Yellow Urine Appearance Cloudy Urine pH 5.5 (5.0-9.0) Ur Specific [place] 1.020 (1.005-1.025) Urine Protein Negative (Neg-Trace) mg/dL Urine Glucose (UA) Negative (Negative) mg/dL Urine Ketones Negative (Negative) mg/dL Urine Blood Trace H (Negative) Urine Nitrite Negative (Negative) Ur Leukocyte Esterase Moderate (2+) H (Negative) Urine RBC 3-5 H (0-2) /HPF Urine WBC >50 H (0-5) /HPF Ur Squamous Epith Cells >20 (0-2) /HPF Calcium Oxalate Crystal Present Urine Bacteria 2+ (None Seen) Hyaline Casts 3-5 (0-2) /LPF Urine Opiates Screen Not Detected (Not Detect) Ur Buprenorphine Scrn Not Detected (Not Detect) ng/mL Ur Oxycodone Screen Not Detected (Not Detect) ng/mL Urine Methadone Screen Not Detected (Not Detect) ng/mL Urine Fentanyl Screen Not Detected (Not Detect) Ur Barbiturates Screen Not Detected (Not Detect) Ur Phencyclidine Scrn Not Detected (Not Detect) Ur Amphetamines Screen Not Detected (Not Detect) U Benzodiazepines Scrn Not Detected (Not Detect) Urine Cocaine Screen Not Detected (Not Detect) U Marijuana (THC) Screen Not Detected (Not Detect) Independent Interpretation I performed an independent interpretation of an: Plain X-Ray Interpretation: KUB notable for no evidence of obstruction, no gross constipation. Radiology Impression Discussion of test interpretation with radiology: I have reviewed the radiologist's reading. Radiologist Impression: CLINICAL HISTORY: abd pain, constipation Abdominal radiographs Comparison: None Findings: There is a nonobstructive bowel gas pattern. Stool quantity is normal. No pneumoperitoneum or pneumatosis. No acute osseous or soft tissue abnormality. Impression: No acute findings. Independent Historian Clinical information obtained from an independent historian. History obtained from or confirmed by: Parent (Information obtained from mother in addition to history provided by patient) and Other (Therapists) External Record Review External record reviewed: Inpatient record, Office record and Outpatient record Discharge Plan Discharge Clinical Impression: Abdominal pain, Noncompliance with medication regimen Patient Disposition: Home, Self-Care Instructions: Abdominal Pain (ED) Additional Instructions: All of your screening labs were normal. The urine is not infected, you were not . The x-ray of the abdomen is normal there was no acute pathology. The ultrasound of your pelvic organs is normal as well. In regard to your rectal bleeding, you can follow up with your primary care provider, your blood counts are stable, the next subsequent step would be to have an endoscopy/colonoscopy, if you continue to have symptoms. The most common cause of rectal bleeding in a young person would be hemorrhoids. To note, people can have hemorrhoids internally that you can not feel on the exterior of your rectum. You were seen by our care team, continue to follow up with your therapist and resume your medications, take them as directed. Prescriptions: No Action Nortrel (28) 1-35 mg-mcg tablet 1 tab PO DAILY clonidine HCl 0.1 mg tablet 0.1 mg PO BID 30 Days Qty: 60 1RF fluoxetine 20 mg capsule 60 mg PO DAILY 30 Days Qty: 90 1RF Vraylar 3 mg capsule 3 mg PO DAILY 30 Days Qty: 30 1RF dexmethylphenidate 30 mg capsule,ER biphasic 50-50 30 mg PO DAILY 30 Days Qty: 30 0RF Rx Instructions: Partial Fill upon patient request. albuterol sulfate 90 mcg/actuation HFA aerosol inhaler 2 puff inhalation Q4-6H PRN (Reason: shortness of breath or wheezing) Qty: 8.5 0RF prednisone 20 mg tablet 60 mg PO DAILY 5 Days Qty: 15 0RF fluconazole 150 mg tablet 150 mg PO ONCE Qty: 1 0RF Print Language: Kyrgyz
[2024-12-31 13:09] LABS: MANUAL DIFF FLAG NO
[2024-12-31 13:11] LABS: Basophils Percent Auto 0.3 % (0-2); Eosinophils Absolute Auto 0.1 X10*3/uL (0.0-0.4); Eosinophils Percent Auto 1.8 % (0-4); Hematocrit 38.7 % (37.0-47.0); Hemoglobin 13.1 g/dl (12.0-16.0); Imm Gran Abs Auto 0.02 X10*3/uL (0.00-0.03); Imm Gran Pct Auto 0.3 % (0.0-0.4); Lymphocytes Absolute Auto 2.7 X10*3/uL (1.2-4.9); Lymphocytes Percent Auto 34.1 % (20-40); Mean Corpuscular HGB Conc 33.9 g/dl (31.0-35.0); Mean Corpuscular Hemoglobin 27.7 pg (27.0-33.0); Mean Corpuscular Volume 81.8 fL (80.0-98.0); Mean Platelet Volume 8.7 fL (9.4-12.3); Monocytes Absolute Auto 0.5 X10*3/uL (0.1-1.2); Monocytes Percent Auto 6.3 % (2-11); Neutrophils Absolute Auto 4.4 x10*3/uL (2.0-8.3); Neutrophils Percent Auto 57.2 % (45-73); Platelet Count 342 X10*3/uL (160-400); Red Blood Count 4.73 X10*6/uL (4.20-5.50); Red Cell Distribution Width 14.4 % (11.0-16.0); White Blood Count 7.8 X10*3/uL (4.8-10.8)
[2024-12-31 13:25] LABS: Alanine Aminotransferase 33 U/L (0-31); Alkaline Phosphatase 90 U/L (39-117); Anion Gap 11 (12-20); Aspartate Amino Transferase 24 U/L (5-31); Bilirubin Direct 0.1 mg/dL (0.0-0.5); Bilirubin Total 0.4 mg/dL (0.0-1.0); Blood Urea Nitrogen 7 mg/dL (9-16); Calcium 9.4 mg/dL (8.4-10.2); Carbon Dioxide 21 mmol/L (22-29); Chloride 111 mmol/L (96-108); Creatinine Clr Calc Pharmacy 153.9; Estimated Glomerular Filt Rate > 60; Glucose Random 119 mg/dL (60-115); Lipase 21 U/L (8-78); Magnesium 1.8 mg/dL (1.6-2.6); Potassium 3.9 mmol/L (3.3-5.1); Sodium 139 mmol/L (135-145); Total Protein 6.9 g/dL (6.5-8.0)
--- OUTSIDE RECORDS SUMMARY | 2024-12-31 15:11 | XMS_ITS | Encounter Summary ---
Author Organization [facility] Address [address] [place] [address] Phone Care Team Providers Care Card Boxer Name Role Phone Rita Valadez MD Primary Care Provider [phone] Encounter Details Date Type Department Care Team (Late st Contact Info) Description 01/19/2011 Documentation [facility] Family Medicine [address] [place] [address] Family Medicine, Physician [address], [place] [address] Social History Tobacco Use Types Packs/Day Years Used Date Smoking Tobacco: Never Assessed Comments Unknown Sex and Gender Information Value Date Recorded Sex Assigned at Not on file Legal Sex Female 5:18 PM EDT Gender Identity Female 12/14/2021 3:45 PM EDT Sexual Orientation Not on file documented as of this encounter Plan of Treatment Not on file documented as of this encounter Visit Diagnoses Not on filedocumented in this encounter Care Teams Card Boxer Relationship Specialty Start Date End Date Rita Valadez MD [address] [place] [id number] PCP - General 03/17/17 09/26/23 documented as of this encounter
[2024-12-31 18:19] LABS: Appearance Urine Cloudy; Color Urine Yellow; Glucose Urine UA Negative (Negative); Leukocyte Esterase Urine Moderate (2+) (Negative); Nitrite Urine Negative (Negative); PH 5.5 (5.0-9.0); UMIC TRIGGER UACC YES; Urine Blood Trace (Negative); Urine Ketones Negative (Negative); Urine Protein Negative (Neg-Trace)
[2024-12-31 18:40] VITALS: BP 144/87; PULSE 94; RESP 17; TEMP 36.7; O2SAT 97
[2024-12-31 18:50] LABS: Bacteria Urine 2+ (None Seen); Squamous Epithelial Cell Urine >20 /HPF (0-2); UACC Culture Trigger YES; WBC Urine >50 /HPF (0-5)
[2024-12-31 19:23] LABS: Calcium Oxalate Crystals Urine Present
--- NOTE | 2024-12-31 19:57 | PC.NURSE ---
Per provider, okay to feed pt. Gave pt. turkey sandwich, cheese tick, and gingerale to eat and drink. Informed pt and mother at bedside that she is awaiting CARE team rep to talk with them.
[2024-12-31 20:00] VITALS: BP 144/87; PULSE 94; RESP 17; TEMP 36.7; O2SAT 97
[2024-12-31 21:15] LABS: Amphetamine Screen Urine Not Detected (Not Detect); Barbiturates, Urine Not Detected (Not Detect); Benzodiazepines Screen Urine Not Detected (Not Detect); Buprenorphine Scr Not Detected (Not Detect); Cannabinoid Screen Urine Not Detected (Not Detect); Cocaine Screen Urine Not Detected (Not Detect); Fentanyl, urine Not Detected (Not Detect); Methadone Screen, Urine Not Detected (Not Detect); Opiate Screen Urine Not Detected (Not Detect); Oxycodone Screen Urine Not Detected (Not Detect); Phencyclidine Screen Urine Not Detected (Not Detect)
--- NOTE | 2024-12-31 23:31 | PC.NURSE ---
Took over care at 23:00 from ANIKET Chan, reviewed discharge instructions with pt. pt verbalized understanding, no sign of distress upon discharge.
[2024-12-31 23:33] VITALS: BP 144/87; PULSE 94; RESP 17; TEMP 36.7; O2SAT 97
== END 2024-12-31 23:33 | disposition home or self-care (01) ==
PROVIDERS: Physician Assistant; Registered Nurse Emergency; Emergency Provider Emergency Medicine; PCP Registered Nurse
DX: R10.2 Pelvic and perineal pain (principal); K62.5 Hemorrhage of anus and rectum; F33.1 Major depressive disorder, recurrent, moderate; R45.1 Restlessness and agitation; Z91.148 Patient's other noncompliance with medication regimen for other reason; Z79.899 Other long term (current) drug therapy; Z51.81 Encounter for therapeutic drug level monitoring
CPT/HCPCS: 36415; 74018; 76856; 80048; 80076; 80307; 81001; 83690; 83735; 85025; 87086; 99284; S9485

== ENCOUNTER → 2024-12-31 17:03 | Outpatient (BNV) | payer OTHER, MEDICAID, SELFPAY | PROVIDERS: Emergency Provider Emergency Medicine; PCP Registered Nurse; Visit Provider Radiology Diagnostic Radiology | DX: R10.819 Abdominal tenderness, unspecified site (principal) | CPT/HCPCS: 74018 ==